=== PATIENT | male | born 1945 | race Caucasian/White ===

== ENCOUNTER 2020-03-29 11:39 | Inpatient (IN) | payer OTHER ==
[~2020-03-29] VITALS: Ht 180.3 cm; Wt 82.0 kg
[2020-03-29 12:28] LABS: Hematocrit 49.1 % (37.0-53.0); Mean Corpuscular HGB 30.4 pg (26.0-34.0); Mean Corpuscular HGB Conc 34.6 g/dL (31.5-36.5); Mean Corpuscular Volume 88 fL (80-100); Mean Platelet Volume 9.5 fL (9.1-12.4); Platelet Count 252 K/mm3 (150-400); RDW Coefficient Variation 12.7 % (11.7-14.2); RDW Standard Deviation 40.7 fL (35.1-46.3); White Blood Cell Count 23.86 K/mm3 (4.00-11.30)
[2020-03-29 12:34] LABS: Alanine Aminotransfer (ALT/SGP 182 U/L (12-78); Albumin, Blood 3.8 g/dL (3.4-5.0); Alk Phos 87 U/L (50-136); Anion Gap 10 mmol/L (6-16); Aspartate Aminotrans (AST/SGOT 120 U/L (12-37); Bilirubin, Total 1.4 mg/dL (0.1-1.0); Blood Urea Nitrogen 11 mg/dL (8-24); Bun/Creatinine Ratio 11.7 (12.0-20.0); CO2, Blood 26 mmol/L (21-32); Calcium, Blood 8.7 mg/dL (8.5-10.1); Chloride, Blood 92 mmol/L (98-108); Creatinine, Blood 0.94 mg/dL (0.60-1.20); Globulin, Blood 3.7 g/dL (2.2-4.0); Glomerular Filtration Rate >60 (60-); Glucose, Blood 103 mg/dL (70-99); Sodium, Blood 128 mmol/L (136-145); Total Protein, Blood 7.5 g/dL (6.4-8.2); Troponin I <0.015 ng/mL (0.000-0.040)
[2020-03-29 13:05] LABS: BAND PERCENT MAN 4 % (0-8); BASOPHILS PERCENT MAN 0 % (0-2); EOSINOPHILS PERCENT MAN 0 % (0-6); LYMPHOCYTES ABSOLUTE MAN 0.47 K/mm3 (0.84-5.20); LYMPHOCYTES PERCENT MAN 2 % (21-46); MONOCYTES ABSOLUTE MAN 0.71 K/mm3 (0.16-1.47); MONOCYTES PERCENT MAN 3 % (4-13); NEUTROPHILS ABSOLUTE MAN 22.66 K/mm3 (1.96-9.15); SEG NEUTROPHILS PERCENT MAN 91 % (41-73); TOTAL CELLS COUNTED 100
[2020-03-29] MEDS ORDERED: LOSA50 PO (13:24)
[2020-03-29] MEDS ORDERED: OMEP20ER PO (13:24)
[2020-03-29] MEDS ORDERED: AMLO5 PO (13:25)
[2020-03-29 13:26] LABS: Source, Urine Clean Catch
[2020-03-29] MEDS ORDERED: METO25ER PO (13:33)
[2020-03-29] MEDS ORDERED: TRIA50 PO (13:33)
[2020-03-29] MEDS ORDERED: VIT1CAPS12 PO (13:34)
[2020-03-29] MEDS ORDERED: THERA-D2000 UNIT PO (13:34)
[2020-03-29] MEDS ORDERED: STIOLTO RESPIMAT4 G1 INH (13:35)
[2020-03-29 13:46] LABS: Appearance, Urine Clear (Clear); Bilirubin, Urine Neg (Neg); Blood, Urine Neg (Neg); Color, Urine Yellow (P-Yellow); Glucose Qualitative, Urine Neg (Neg); Ketones, Urine Neg (Neg); Leukocyte Esterase, Urine Neg (Neg); Nitrite, Urine Neg (Neg); Protein, Urine 2+ (Neg); Specific Gravity, Urine 1.015 (1.003-1.022); Urobilinogen, Urine NORM (Normal)
[2020-03-29 14:21] LABS: Bacteria Few /hpf; Red Blood Cells, Urine Not Seen /hpf (0-2); Squamous Epithelial Cells Not Seen /hpf (Few); White Blood Cells, Urine Not Seen /hpf (0-5)
[2020-03-30] MEDS ORDERED: ALBU90OI INH (00:35)
[2020-03-30] MEDS ORDERED: BENZ100A PO ×2 (00:36→11:23)
[2020-03-30] MEDS ORDERED: Flonase 0.05% N16 GM (00:37)
[2020-03-30] MEDS ORDERED: Dyazide 37.5/251 EA PO (00:39)
[2020-03-30] MEDS ORDERED: MULTI-VITAMIN1 EAC2 PO (00:40)
[2020-03-30] MEDS ORDERED: STIOLTO RESPIMAT4 G1 INH (00:41)
[2020-03-30 04:23] LABS: BASOPHILS ABSOLUTE AUTO 0.01 K/mm3 (0.00-0.23); BASOPHILS PERCENT AUTO 0 % (0-2); EOSINOPHILS ABSOLUTE AUTO 0.01 K/mm3 (0.00-0.68); EOSINOPHILS PERCENT AUTO 0 % (0-6); Hematocrit 44.8 % (37.0-53.0); Hemoglobin 15.4 g/dL (13.5-17.5); IMMATURE GRAN ABSOLUTE AUTO 0.06 K/mm3 (0.00-0.10); IMMATURE GRAN PERCENT AUTO 0 % (0-1); LYMPHOCYTES ABSOLUTE AUTO 0.49 K/mm3 (0.84-5.20); LYMPHOCYTES PERCENT AUTO 3 % (21-46); MONOCYTES ABSOLUTE AUTO 0.19 K/mm3 (0.16-1.47); MONOCYTES PERCENT AUTO 1 % (4-13); Mean Corpuscular HGB 30.3 pg (26.0-34.0); Mean Corpuscular HGB Conc 34.4 g/dL (31.5-36.5); Mean Corpuscular Volume 88 fL (80-100); Mean Platelet Volume 9.1 fL (9.1-12.4); NEUTROPHILS ABSOLUTE AUTO 13.49 K/mm3 (1.96-9.15); NEUTROPHILS PERCENT AUTO 95 % (41-73); Platelet Count 227 K/mm3 (150-400); RDW Coefficient Variation 12.7 % (11.7-14.2); RDW Standard Deviation 40.8 fL (35.1-46.3); Red Blood Cell Count 5.08 M/mm3 (4.30-5.90); White Blood Cell Count 14.25 K/mm3 (4.00-11.30)
[2020-03-30 04:40] LABS: Alanine Aminotransfer (ALT/SGP 121 U/L (12-78); Albumin, Blood 3.2 g/dL (3.4-5.0); Albumin/Globulin Ratio 0.9 (0.8-1.8); Alk Phos 71 U/L (50-136); Anion Gap 9 mmol/L (6-16); Aspartate Aminotrans (AST/SGOT 54 U/L (12-37); Bilirubin, Total 0.7 mg/dL (0.1-1.0); Blood Urea Nitrogen 16 mg/dL (8-24); Bun/Creatinine Ratio 17.7 (12.0-20.0); CO2, Blood 25 mmol/L (21-32); Calcium, Blood 8.5 mg/dL (8.5-10.1); Chloride, Blood 97 mmol/L (98-108); Globulin, Blood 3.4 g/dL (2.2-4.0); Glomerular Filtration Rate >60 (60-); Glucose, Blood 145 mg/dL (70-99); Potassium, Blood 3.6 mmol/L (3.5-5.5); Sodium, Blood 131 mmol/L (136-145); Total Protein, Blood 6.6 g/dL (6.4-8.2)
[2020-03-30 10:40] LABS: Influenza A, PCR NEGATIVE (NEGATIVE); Influenza B, PCR NEGATIVE (NEGATIVE); Resp Syncytial Virus, PCR NEGATIVE (NEGATIVE); SARS-Cov-2 (COVID-19) PCR, MMC NEGATIVE (NEGATIVE)
[2020-03-31 05:03] LABS: BASOPHILS ABSOLUTE AUTO 0.03 K/mm3 (0.00-0.23); BASOPHILS PERCENT AUTO 0 % (0-2); EOSINOPHILS ABSOLUTE AUTO 0.13 K/mm3 (0.00-0.68); EOSINOPHILS PERCENT AUTO 1 % (0-6); Hematocrit 45.7 % (37.0-53.0); Hemoglobin 15.7 g/dL (13.5-17.5); IMMATURE GRAN PERCENT AUTO 1 % (0-1); LYMPHOCYTES ABSOLUTE AUTO 1.35 K/mm3 (0.84-5.20); LYMPHOCYTES PERCENT AUTO 7 % (21-46); MONOCYTES ABSOLUTE AUTO 1.73 K/mm3 (0.16-1.47); MONOCYTES PERCENT AUTO 9 % (4-13); Mean Corpuscular HGB 30.6 pg (26.0-34.0); Mean Corpuscular HGB Conc 34.4 g/dL (31.5-36.5); Mean Corpuscular Volume 89 fL (80-100); Mean Platelet Volume 9.8 fL (9.1-12.4); NEUTROPHILS ABSOLUTE AUTO 16.24 K/mm3 (1.96-9.15); NEUTROPHILS PERCENT AUTO 83 % (41-73); Platelet Count 252 K/mm3 (150-400); RDW Standard Deviation 42.7 fL (35.1-46.3); Red Blood Cell Count 5.13 M/mm3 (4.30-5.90); White Blood Cell Count 19.58 K/mm3 (4.00-11.30)
[2020-03-31 05:23] LABS: Alanine Aminotransfer (ALT/SGP 93 U/L (12-78); Albumin, Blood 3.2 g/dL (3.4-5.0); Alk Phos 65 U/L (50-136); Anion Gap 6 mmol/L (6-16); Aspartate Aminotrans (AST/SGOT 47 U/L (12-37); Bilirubin, Total 0.4 mg/dL (0.1-1.0); Blood Urea Nitrogen 17 mg/dL (8-24); Bun/Creatinine Ratio 20.2 (12.0-20.0); CO2, Blood 28 mmol/L (21-32); Calcium, Blood 8.4 mg/dL (8.5-10.1); Chloride, Blood 99 mmol/L (98-108); Creatinine, Blood 0.84 mg/dL (0.60-1.20); Globulin, Blood 3.2 g/dL (2.2-4.0); Glomerular Filtration Rate >60 (60-); Glucose, Blood 93 mg/dL (70-99); Potassium, Blood 3.8 mmol/L (3.5-5.5); Sodium, Blood 133 mmol/L (136-145); Total Protein, Blood 6.4 g/dL (6.4-8.2)
[2020-03-31] MEDS ORDERED: CEFP200 PO (11:37)
[2020-03-31] MEDS ORDERED: AZIT500 PO (11:37)
[2020-03-31] MEDS ORDERED: GUAI600T33 PO (11:38)
[2020-03-31] MEDS ORDERED: ONDA4ODT MM (11:38)
[2020-03-31] MEDS ORDERED: PRED20 PO (11:40)
[2020-03-31] MEDS ORDERED: VISBIOME 112.51 EACH PO (11:41)
[2020-03-31] MEDS ORDERED: BENZ100A (11:48)
== END 2020-03-31 15:28 | disposition home or self-care (01) | DRG 871 ==
LOC: ER 11:39 → MEDS 14:54
PROVIDERS: Emergency Medicine; Family Medicine; Nurse Practitioner Acute Care; ADMIT Internal Medicine
DX: A41.9 Sepsis, unspecified organism (principal); J96.21 Acute and chronic respiratory failure with hypoxia; J18.9 Pneumonia, unspecified organism; J44.1 Chronic obstructive pulmonary disease with (acute) exacerbation; I27.0 Primary pulmonary hypertension; E87.1 Hypo-osmolality and hyponatremia; J44.0 Chronic obstructive pulmonary disease with (acute) lower respiratory infection; I48.0 Paroxysmal atrial fibrillation; K21.9 Gastro-esophageal reflux disease without esophagitis; Z85.46 Personal history of malignant neoplasm of prostate; Z87.891 Personal history of nicotine dependence; I10 Essential (primary) hypertension; R74.01 Elevation of levels of liver transaminase levels
CPT/HCPCS: 0241U; 36415; 71045; 71046; 71260; 80053; 81001; 83605; 83690; 83880; 84145; 84484; 85025; 87040; 87077; 87186; 93005; 93010; 94640; 94760; 96365; 96366; 96367; 96375; 99285-25; A9270; J0456; J0696; J1650; J2920; J2930; J7030; J7050; J7512; Q9967

== ENCOUNTER 2022-04-08 13:03 | Inpatient (IN) | payer OTHER ==
[~2022-04-08] VITALS: Ht 177.8 cm; Wt 79.6 kg
[~2022-04-08 13:03] MED LIST: ALBU90OI INH; AMLO5 PO; AZIT500 PO; BENZ100A; BENZ100A PO; CEFP200 PO; Dyazide 37.5/251 EA PO; Flonase 0.05% N16 GM; GUAI600T33 PO; LOSA50 PO; METO25ER PO; MULTI-VITAMIN1 EAC2 PO; OMEP20ER PO; ONDA4ODT MM; PRED20 PO; STIOLTO RESPIMAT4 G1 INH; THERA-D2000 UNIT PO; TRIA50 PO; VISBIOME 112.51 EACH PO; VIT1CAPS12 PO
[2022-04-08 13:25] LABS: Mean Corpuscular HGB 30.9 pg (26.0-34.0); Mean Corpuscular HGB Conc 37.2 g/dL (31.5-36.5); Mean Corpuscular Volume 83 fL (80-100); Mean Platelet Volume 8.3 fL (9.1-12.4); Platelet Count 273 K/mm3 (150-400); RDW Coefficient Variation 12.1 % (11.7-14.2); RDW Standard Deviation 36.9 fL (35.1-46.3); Red Blood Cell Count 5.18 M/mm3 (4.30-5.90); White Blood Cell Count 12.44 K/mm3 (4.00-11.30)
[2022-04-08 13:50] LABS: Albumin, Blood 3.5 g/dL (3.4-5.0); Albumin/Globulin Ratio 1.2 (0.8-1.8); Bilirubin, Total 0.9 mg/dL (0.1-1.0); Bun/Creatinine Ratio 15.5 (12.0-20.0); Calcium, Blood 8.1 mg/dL (8.5-10.1); Creatinine, Blood 0.84 mg/dL (0.60-1.20); Potassium, Blood 2.8 mmol/L (3.5-5.5); Total Protein, Blood 6.5 g/dL (6.4-8.2)
[2022-04-08 13:54] LABS: BASOPHILS PERCENT MAN 0 % (0-2); EOSINOPHILS PERCENT MAN 0 % (0-6); LYMPHOCYTES ABSOLUTE MAN 0.62 K/mm3 (0.84-5.20); LYMPHOCYTES PERCENT MAN 5 % (21-46); MONOCYTES ABSOLUTE MAN 0.62 K/mm3 (0.16-1.47); MONOCYTES PERCENT MAN 5 % (4-13); MYELOCYTE ABSOLUTE MAN 0.12 K/mm3 (0.00-0.00); MYELOCYTE PERCENT MAN 1 % (0-0); NEUTROPHILS ABSOLUTE MAN 11.07 K/mm3 (1.96-9.15); SEG NEUTROPHILS PERCENT MAN 89 % (41-73); TOTAL CELLS COUNTED 100
[2022-04-08] MEDS ORDERED: Ventolin/Proventil INH (17:22)
[2022-04-08] MEDS ORDERED: CHLO25B PO (17:23)
[2022-04-08] MEDS ORDERED: FAMO20 PO (17:24)
[2022-04-08] MEDS ORDERED: Iprat-Albut 0.5-3(2. INH (17:26)
[2022-04-08] MEDS ORDERED: LOSARTAN POTAS100 M1 PO (17:27)
[2022-04-08] MEDS ORDERED: Lopressor 25 mg25 MG PO (17:28)
[2022-04-08] MEDS ORDERED: Deltasone 10 mg10 MG PO (17:29)
[2022-04-08] MEDS ORDERED: [UNRECOGNIZED DRUG - OTHER] PO (17:31)
[2022-04-08 18:35] LABS: Bun/Creatinine Ratio 13.7 (12.0-20.0); Calcium, Blood 8.6 mg/dL (8.5-10.1); Creatinine, Blood 0.8 mg/dL (0.60-1.20); Potassium, Blood 3.6 mmol/L (3.5-5.5)
[2022-04-08 19:14] LABS: Base Excess Venous 5.2 mmol/L; Bicarbonate Venous 28.1 mmol/L (24.0-30.0); PCO2 Venous 47.6 mmHg (38-42); pH Blood Venous 7.41 (7.34-7.37)
[2022-04-09 00:06] LABS: Bun/Creatinine Ratio 14.1 (12.0-20.0); Calcium, Blood 8.2 mg/dL (8.5-10.1); Creatinine, Blood 0.85 mg/dL (0.60-1.20); Potassium, Blood 2.9 mmol/L (3.5-5.5)
--- NOTE | 2022-04-09 01:16 | NUR ---
UPDATE NA 117 ON ADMIT, CURRENTLY 124. K OF 2.9. PER TALENT SOURCING SPECIALIST RESIDENT, OK TO D/C IV FLUIDS, NEW ORDER FOR 60 MEQ KCL PO.
[2022-04-09 04:40] LABS: BASOPHILS ABSOLUTE AUTO 0.03 K/mm3 (0.00-0.23); BASOPHILS PERCENT AUTO 0 % (0-2); EOSINOPHILS ABSOLUTE AUTO 0.09 K/mm3 (0.00-0.68); EOSINOPHILS PERCENT AUTO 1 % (0-6); Hematocrit 41.6 % (37.0-53.0); Hemoglobin 15.2 g/dL (13.5-17.5); IMMATURE GRAN ABSOLUTE AUTO 0.07 K/mm3 (0.00-0.10); IMMATURE GRAN PERCENT AUTO 1 % (0-1); LYMPHOCYTES ABSOLUTE AUTO 1.62 K/mm3 (0.84-5.20); LYMPHOCYTES PERCENT AUTO 17 % (21-46); MONOCYTES ABSOLUTE AUTO 1.28 K/mm3 (0.16-1.47); MONOCYTES PERCENT AUTO 13 % (4-13); Mean Corpuscular HGB 31.1 pg (26.0-34.0); Mean Corpuscular HGB Conc 36.5 g/dL (31.5-36.5); Mean Corpuscular Volume 85 fL (80-100); NEUTROPHILS ABSOLUTE AUTO 6.73 K/mm3 (1.96-9.15); NEUTROPHILS PERCENT AUTO 69 % (41-73); Platelet Count 283 K/mm3 (150-400); RDW Coefficient Variation 12.2 % (11.7-14.2); RDW Standard Deviation 37.9 fL (35.1-46.3); Red Blood Cell Count 4.89 M/mm3 (4.30-5.90); White Blood Cell Count 9.82 K/mm3 (4.00-11.30)
[2022-04-09 04:58] LABS: Calcium, Blood 8.3 mg/dL (8.5-10.1); Creatinine, Blood 0.92 mg/dL (0.60-1.20); Potassium, Blood 3.3 mmol/L (3.5-5.5)
--- NOTE | 2022-04-09 05:50 | NUR ---
SHIFT SUMMARY A/OX4, PLEASANT AND COOPERATIVE WITH CARE. 1-2P ASSIST WITH FWW AND GB. TELE SR IN THE 70S. BP STABLE; DENIES CHEST PAIN/PRESSURE. SPO2 >92% ON BASELINE 2L VIA NC. IV FLUIDS D/C'D, PLEASE SEE PREVIOUS NOTE REGARDING NA AND K. VSS, NO ACUTE CHANGES AT THIS TIME. BED IN LOWEST POSITION WITH CALL LIGHT IN REACH. WILL CONTINUE TO MONITOR AND REPORT TO ONCOMING RN.
[2022-04-09 07:22] LABS: Magnesium, Blood 1.9 mg/dL (1.6-2.4)
[2022-04-09 08:44] LABS: Bun/Creatinine Ratio 12.8 (12.0-20.0); Calcium, Blood 8.5 mg/dL (8.5-10.1); Creatinine, Blood 0.86 mg/dL (0.60-1.20); Potassium, Blood 2.9 mmol/L (3.5-5.5)
[2022-04-09 12:13] LABS: Bun/Creatinine Ratio 15.9 (12.0-20.0); Calcium, Blood 8.7 mg/dL (8.5-10.1); Creatinine, Blood 0.82 mg/dL (0.60-1.20); Potassium, Blood 3.2 mmol/L (3.5-5.5)
[2022-04-09 16:06] LABS: Bun/Creatinine Ratio 17.6 (12.0-20.0); Calcium, Blood 8.4 mg/dL (8.5-10.1); Creatinine, Blood 0.91 mg/dL (0.60-1.20); Potassium, Blood 3.9 mmol/L (3.5-5.5)
--- NOTE | 2022-04-09 16:24 | NUR ---
SHIFT SUMMARY PT HAS BEEN PLEASANT AND COOPERATIVE WITH ALL CARE. PT HAS CALLED APPROPRIATELY FOR ASSISTANCE. PT WAS TRIALED ON AN ANXIOLYTIC PER PROVIDER WHICH CAUSED MARKED DROWSINESS FOR SEVERAL HOURS. PT DID NOT EXHIBIT ANY FURTHER SIGNS OF SIGNIFICANT ANXIETY. ALL VITAL SIGNS HAVE REMAINED STABLE, NO CAHNGES IN PATIENT CONDITION.
[2022-04-09 21:34] LABS: Bun/Creatinine Ratio 15.6 (12.0-20.0); Calcium, Blood 8.4 mg/dL (8.5-10.1); Creatinine, Blood 0.9 mg/dL (0.60-1.20)
--- NOTE | 2022-04-10 04:11 | NUR ---
SHIFT SUMMARY PATIENT HAD NO ACUTE CHANGES. AXOX 4 AND ONE ASSIST W/FWW TO BSC. PIV REMAINS INTACT. ON 2L O2 NC BASELINE. DENIES PAIN, SOB, AND N/V. VSS/AFEBRILE. HOSPITALIST DR ZAMORANO CALLED AND CHANGED NS @ 75 mL/HR TO 50 mL/HR. COOPERATIVE WITH CARE. CALL LIGHT IN REACH. BED IN LOWEST POSITION. WILL CONTINUE TO MONITOR UNTIL DAY SHIFT NURSE ASSUMES CARE.
[2022-04-10 06:40] LABS: Albumin, Blood 3.1 g/dL (3.4-5.0); Anion Gap 7 mmol/L (6-16); Blood Urea Nitrogen 11 mg/dL (8-24); Bun/Creatinine Ratio 13.8 (12.0-20.0); CO2, Blood 31 mmol/L (21-32); Calcium, Blood 8.3 mg/dL (8.5-10.1); Chloride, Blood 94 mmol/L (98-108); Glomerular Filtration Rate 92 (60-); Glucose, Blood 85 mg/dL (70-99); Phosphorus, Blood 2.3 mg/dL (2.5-4.9); Potassium, Blood 3.3 mmol/L (3.5-5.5); Sodium, Blood 132 mmol/L (136-145)
[2022-04-10 10:36] LABS: Bun/Creatinine Ratio 12.5 (12.0-20.0); Calcium, Blood 8.4 mg/dL (8.5-10.1); Creatinine, Blood 0.88 mg/dL (0.60-1.20)
[2022-04-10 16:23] LABS: Bun/Creatinine Ratio 14.4 (12.0-20.0); Calcium, Blood 8.7 mg/dL (8.5-10.1); Creatinine, Blood 0.83 mg/dL (0.60-1.20); Magnesium, Blood 1.9 mg/dL (1.6-2.4); Potassium, Blood 4.2 mmol/L (3.5-5.5)
--- NOTE | 2022-04-10 17:58 | NUR ---
SHIFT SUMMARY PT UP TO BATHROOM WITH 1 PERSON ASSIST USING FWW THIS MORNING WITH BM. SITS ON SIDE OF BED FOR MEALS. AMBULATED IN HALLWAY THIS AFTERNOON WITH FWW AND 1 PERSON ASSIST. MILD SOB WITH ACTIVITY. SODIUM LEVELS REMAIN LOWER THAN NORMAL WITH NS NOW RUNNING AT 100/HR. AT BEDSIDE. PT NOTIFIED EARLIER TODAY OF LIMITING WATER INTAKE DUE TO LOW SODIUM DUE TO HIM STATING HE DRINKS A COUPLE LITERS OF WATER PER DAY. DISCUSSED WITH PT ABOUT NEW NO WATER RESTRICTION AND WAS AGREEABLE TO ANEL.
[2022-04-10 23:43] LABS: Bun/Creatinine Ratio 13.7 (12.0-20.0); Calcium, Blood 8.3 mg/dL (8.5-10.1); Creatinine, Blood 0.95 mg/dL (0.60-1.20); Potassium, Blood 3.9 mmol/L (3.5-5.5)
--- NOTE | 2022-04-11 05:05 | NUR ---
SHIFT SUMMARY NO OVERNIGHT EVENTS. IV FLUIDS CONTIUE. NA+ STILL LOW AT 130. PT RESTRICTED TO NO WATER, ENCOURAGING GATORADE. PT ON BASELINE 2LO2 NC, REPORTS MILD SOB. PT STATES HE IS HAVING SOME BLOODY SPUTUM WITH HIS COUGH. PER PT, STATES HE HAS HAD BLOODY SPUTUM FOR 8 MONTHS AND OP PULMONALOGY MD IS AWARE, WILL ENDORSE TO DAY SHIFT RN. PT USING URINAL, REMAINED IN BED, ABLE TO TURN SELF. PT ORIENTED X4, ABLE TO MAKE NEEDS KNOWN, CALL LIGHT IN REACH.
[2022-04-11 05:07] LABS: Bun/Creatinine Ratio 11.6 (12.0-20.0); Calcium, Blood 8.4 mg/dL (8.5-10.1); Creatinine, Blood 0.95 mg/dL (0.60-1.20)
[2022-04-11] MEDS ORDERED: IPRAT-ALBUT 0.5-3 ML INH (11:02)
[2022-04-11] MEDS ORDERED: Preservision A1 EACH PO (11:03)
[2022-04-11] MEDS ORDERED: PROAIR DIGIHAL90 MCG INH (11:04)
[2022-04-11] MEDS ORDERED: DOCU100 PO (11:05)
--- NOTE | 2022-04-11 13:04 | NUR ---
DISCHARGE- PT DISCHARED TO HOME ON 2L NC. DISCHARGE EDUCATION PROVIDED.
== END 2022-04-11 11:55 | disposition home or self-care (01) | DRG 640 ==
LOC: ER 13:03 → MEDS 17:19 → PCU 17:19 → ER 17:19 → ICUW 17:19 → PCU 20:17 → MEDS 04-09 18:16
PROVIDERS: Emergency Medicine; Family Medicine; Family Medicine Adult Medicine; Student in an Organized Health Care Education/Training Program; ADMIT Hospitalist
DX: E87.1 Hypo-osmolality and hyponatremia (principal); G93.41 Metabolic encephalopathy; R65.10 Systemic inflammatory response syndrome (SIRS) of non-infectious origin without acute organ dysfunction; J44.9 Chronic obstructive pulmonary disease, unspecified; I48.91 Unspecified atrial fibrillation; T50.2X5A Adverse effect of carbonic-anhydrase inhibitors, benzothiadiazides and other diuretics, initial encounter; K21.9 Gastro-esophageal reflux disease without esophagitis; E78.5 Hyperlipidemia, unspecified; E87.6 Hypokalemia; R91.1 Solitary pulmonary nodule; E86.1 Hypovolemia; I10 Essential (primary) hypertension; R63.1 Polydipsia; E83.51 Hypocalcemia; E86.0 Dehydration; E03.9 Hypothyroidism, unspecified; J84.10 Pulmonary fibrosis, unspecified; Z85.118 Personal history of other malignant neoplasm of bronchus and lung; Z88.8 Allergy status to other drugs, medicaments and biological substances; Z79.899 Other long term (current) drug therapy; Z79.51 Long term (current) use of inhaled steroids; Z79.52 Long term (current) use of systemic steroids; Z79.2 Long term (current) use of antibiotics; Z87.891 Personal history of nicotine dependence; Z92.3 Personal history of irradiation; Z85.46 Personal history of malignant neoplasm of prostate; Z86.73 Personal history of transient ischemic attack (TIA), and cerebral infarction without residual deficits; Z98.890 Other specified postprocedural states
CPT/HCPCS: 36415; 71260; 80048; 80053; 80069; 82570; 82803; 83735; 83930; 83935; 84300; 84443; 85025; 93005; 93010; 94640; 94664; 94760; 94762; 96365-59; 99285-25; A9270; J1650; J3480; J7030; J7050; J7512; Q9967

== ENCOUNTER 2022-04-22 11:16 | Inpatient (IN) | payer OTHER ==
[~2022-04-22] VITALS: Ht 180.3 cm; Wt 78.0 kg
[~2022-04-22 11:16] MED LIST changes: +CHLO25B PO; +DOCU100 PO; +Deltasone 10 mg10 MG PO; +FAMO20 PO; +IPRAT-ALBUT 0.5-3 ML INH; +Iprat-Albut 0.5-3(2. INH; +LOSARTAN POTAS100 M1 PO; +Lopressor 25 mg25 MG PO; +PROAIR DIGIHAL90 MCG INH; +Preservision A1 EACH PO; +Ventolin/Proventil INH; +[UNRECOGNIZED DRUG - OTHER] PO
[2022-04-22 12:16] LABS: BASOPHILS ABSOLUTE AUTO 0.05 K/mm3 (0.00-0.23); BASOPHILS PERCENT AUTO 0 % (0-2); Hematocrit 40.1 % (37.0-53.0); Hemoglobin 14.4 g/dL (13.5-17.5); LYMPHOCYTES ABSOLUTE AUTO 0.61 K/mm3 (0.84-5.20); LYMPHOCYTES PERCENT AUTO 2 % (21-46); MONOCYTES ABSOLUTE AUTO 2.34 K/mm3 (0.16-1.47); MONOCYTES PERCENT AUTO 8 % (4-13); Mean Corpuscular HGB 31.1 pg (26.0-34.0); Mean Corpuscular HGB Conc 35.9 g/dL (31.5-36.5); Mean Corpuscular Volume 87 fL (80-100); Mean Platelet Volume 9.5 fL (9.1-12.4); Platelet Count 283 K/mm3 (150-400); RDW Coefficient Variation 12.9 % (11.7-14.2); RDW Standard Deviation 40.6 fL (35.1-46.3); Red Blood Cell Count 4.63 M/mm3 (4.30-5.90); White Blood Cell Count 30.21 K/mm3 (4.00-11.30)
[2022-04-22 12:19] LABS: Bun/Creatinine Ratio 17.5 (12.0-20.0); Calcium, Blood 8.5 mg/dL (8.5-10.1); Creatinine, Blood 0.92 mg/dL (0.60-1.20); Magnesium, Blood 1.8 mg/dL (1.6-2.4)
[2022-04-22 12:27] LABS: EOSINOPHILS ABSOLUTE AUTO 0.15 K/mm3 (0.00-0.68); EOSINOPHILS PERCENT AUTO 1 % (0-6); IMMATURE GRAN ABSOLUTE AUTO 0.49 K/mm3 (0.00-0.10); IMMATURE GRAN PERCENT AUTO 2 % (0-1); NEUTROPHILS ABSOLUTE AUTO 26.57 K/mm3 (1.96-9.15); NEUTROPHILS PERCENT AUTO 88 % (41-73)
[2022-04-22 15:47] LABS: Anti-Xa UFH, PHA Monitoring <0.10 IU/mL; International Normalized Ratio 1.14; Prothrombin Time Results 11.9 Sec (9.7-11.5)
[2022-04-22] MEDS ORDERED: AMLO5 PO (16:31)
[2022-04-22] MEDS ORDERED: LOSA50 PO (16:31)
[2022-04-22] MEDS ORDERED: METO25ER PO (16:32)
[2022-04-22] MEDS ORDERED: OMEPRAZOLE20 M1 (16:32)
[2022-04-22] MEDS ORDERED: THERA-D2000 UNIT PO (16:33)
[2022-04-22] MEDS ORDERED: PRESERVISION A1 EAC1 (16:33)
[2022-04-22] MEDS ORDERED: ALBU2.5V5 INH (16:33)
[2022-04-22] MEDS ORDERED: STIOLTO RESPIMAT4 G1 IH (16:33)
[2022-04-22] MEDS ORDERED: PRED5 (16:34)
--- NOTE | 2022-04-22 21:00 | NUR ---
ADMISSION REPORT RECIEVED FROM ER NURSE. PATIENT ARRIVES TO PCU 17. CARDIZEM GTT INFUSING AT 10. PATIENT ALERT AND ORIENTED x4. WEARING BASELINE 3L O2, SATS LOW 90s. AUDIBLE WHEEZES AT TIMES, LUNGS HAVE FINE CRACKLES IN BASES. DENIES CHEST PAIN OR PRESSURE. PATIENT REQUESTING TO USE URINAL INDEPDENTLY. INFORMED PATIENT OF FREE WATER FLUID RESTRICTION, PATIENT AWARE. PATIENT ORIENTED TO ROOM AND CALL LIGHT SYSTEM. BED IN LOW POSITION, HAS CALL LIGHT AND IS WATCHING TV.
[2022-04-23 04:06] LABS: BASOPHILS ABSOLUTE AUTO 0.04 K/mm3 (0.00-0.23); BASOPHILS PERCENT AUTO 0 % (0-2); EOSINOPHILS ABSOLUTE AUTO 0.06 K/mm3 (0.00-0.68); EOSINOPHILS PERCENT AUTO 0 % (0-6); Hematocrit 37.8 % (37.0-53.0); Hemoglobin 13.4 g/dL (13.5-17.5); IMMATURE GRAN ABSOLUTE AUTO 0.14 K/mm3 (0.00-0.10); IMMATURE GRAN PERCENT AUTO 1 % (0-1); LYMPHOCYTES ABSOLUTE AUTO 0.68 K/mm3 (0.84-5.20); LYMPHOCYTES PERCENT AUTO 4 % (21-46); MONOCYTES PERCENT AUTO 8 % (4-13); Mean Corpuscular HGB 31.2 pg (26.0-34.0); Mean Corpuscular HGB Conc 35.4 g/dL (31.5-36.5); Mean Corpuscular Volume 88 fL (80-100); Mean Platelet Volume 9.5 fL (9.1-12.4); NEUTROPHILS ABSOLUTE AUTO 15.84 K/mm3 (1.96-9.15); NEUTROPHILS PERCENT AUTO 87 % (41-73); Platelet Count 251 K/mm3 (150-400); RDW Coefficient Variation 12.8 % (11.7-14.2); RDW Standard Deviation 41.5 fL (35.1-46.3); Red Blood Cell Count 4.29 M/mm3 (4.30-5.90); White Blood Cell Count 18.26 K/mm3 (4.00-11.30)
[2022-04-23 04:35] LABS: Bun/Creatinine Ratio 14.6 (12.0-20.0); Creatinine, Blood 0.96 mg/dL (0.60-1.20); Potassium, Blood 3.3 mmol/L (3.5-5.5)
--- NOTE | 2022-04-23 06:52 | NUR ---
SHIFT SUMMARY PATIENT ALERT AND ORIENTED x4. BP STABLE, HR AFIB 110-130s. CARDIZEM GTT INFUSING. SEE FLOWSHEET FOR TITRATIONS. CARDIZEM IN STANDBY FOR ABOUT 2 HOURS BUT PATIENT WENT INTO AFIB RVR 170 AND CARDIZEM WAS STARTED AGAIN. PATIENT DENIED ANY SYMPTOMS WITH EPISODE. PATIENT ON 3-5L NC DURING THE NIGHT PATIENT DESATs WITH MOUTH BREATHING. PATIENT USING URINAL INDEPENDENTLY WITH ADEQUATE OUTPUT THIS SHIFT. FREE WATER RESTRICTION. NO OTHER CHANGES THIS SHIFT, WILL REPORT TO DAY SHIFT RN.
--- NOTE | 2022-04-23 07:45 | NUR ---
AM ASSESSMENT: Pt resting in bed. HR currently 70's and NSR, Pt converted from afib around 0730. Cardizem gtt turned off. BP low with SBP in the 80's, MAP >60. Pt denies dizziness, lightheadedness. States that he feels much better than when he came in. LS diminished with some fine crackles in bases. O2 currently at 5L per NC. Pt does desaturate at times. Will titrate o2 to keep BIox >90%. BT positive. Pules palp. Will continue to monitor. Call light in reach.
--- NOTE | 2022-04-23 08:00 | NUR ---
Transfer assessment: Pt arrived to room PCU 20 from medical floor. Pt lethargic but wakes to verbal stimulus. Oriented to self, knows he is at hospital but not sure where at this time, asking for his . Pt arrived on 15L NRB. BIox showed 100%. Dr. Salinas and RT in room. Decreased O2 down to 12L per High flow NC. Will continue to titrated for biox > 92%. LS diminished. HR reg. VSS. Pt grunts and grimaces with any movement. Will medicate and reposition per orders. Pt repositioned to R side. Buttock very red with stage one pressure ulcer noted. Mepalex placed and will continue to reposition Q2. Dotson cath to be placed per orders. Call light in reach. Bed alarm on. Will continue to mnoitor.
--- NOTE | 2022-04-23 12:03 | NUR ---
update: Pt much more alert. Was able to be titrated down to 8L per high flow NC. Currently states that his pain is a 2/10 in back, tolerable. Pt oriented to self, family and place. Following directions. Able to sit up and eat finger food lunch. at bedside. Dotson cath draining clear, yellow urine. BP and HR stable. Call light in reach. Will continue to monitor.
--- NOTE | 2022-04-23 18:10 | NUR ---
SHIFT SUMMARY: Pt has done well this shift. Converted to NSR this am and has remained in NSR with PAC's throughout shift. Rate has increased from the 70's to the low 100's. BP had improved throughout shift. Pt states that he is feeling pretty good and hopes to discharge tomorrow. Oxygen has had to remain at 5L per NC to maintain oxygen >90%. PT/OT worked with patient. Tolerated well. Will report to night RN. Stable at this time.
--- NOTE | 2022-04-23 23:59 | NUR ---
ASSUMPTION OF CARE ASSUMED CARE OF PT AT 1900. PT A&Ox4, CALLS AND COMMUNICATES NEEDS APPROPRIATELY. VSS, SpO2> 92% ON 5L VIA NC, PT DENIES CP/PRESSURE. BP STABLE, SINUS 90-100's WITH PAC's, DENIES CP/PRESSURE. 2300 BP SOFT WITH SBP 90's, PT ASYMPTOMATIC. PT USES URINAL IND AT BEDSIDE. PT ON CONTINUOUS CARDIAC AND SpO2 MONITORING.
--- NOTE | 2022-04-24 05:25 | NUR ---
SHIFT SUMMARY SEE PREVIOUS NOTE, NO ACUTE CHANGES. VSS, BP STABLE, SINUS WITH PAC's 80-100's, DENIES CP/PRESSURE. SpO2> 92% 5L VIA NC, DENIES SOB. NO OTHER EVENTS, WILL REPORT TO ONCOMING RN.
[2022-04-24 10:13] LABS: BASOPHILS ABSOLUTE AUTO 0.04 K/mm3 (0.00-0.23); BASOPHILS PERCENT AUTO 0 % (0-2); EOSINOPHILS ABSOLUTE AUTO 0.15 K/mm3 (0.00-0.68); EOSINOPHILS PERCENT AUTO 1 % (0-6); Hemoglobin 14.3 g/dL (13.5-17.5); IMMATURE GRAN ABSOLUTE AUTO 0.05 K/mm3 (0.00-0.10); IMMATURE GRAN PERCENT AUTO 0 % (0-1); LYMPHOCYTES ABSOLUTE AUTO 0.64 K/mm3 (0.84-5.20); LYMPHOCYTES PERCENT AUTO 5 % (21-46); MONOCYTES ABSOLUTE AUTO 1.16 K/mm3 (0.16-1.47); MONOCYTES PERCENT AUTO 9 % (4-13); Mean Corpuscular HGB 30.8 pg (26.0-34.0); Mean Corpuscular HGB Conc 34.9 g/dL (31.5-36.5); Mean Corpuscular Volume 88 fL (80-100); Mean Platelet Volume 8.8 fL (9.1-12.4); NEUTROPHILS ABSOLUTE AUTO 11.16 K/mm3 (1.96-9.15); NEUTROPHILS PERCENT AUTO 85 % (41-73); Platelet Count 343 K/mm3 (150-400); RDW Coefficient Variation 12.8 % (11.7-14.2); RDW Standard Deviation 41.8 fL (35.1-46.3); Red Blood Cell Count 4.64 M/mm3 (4.30-5.90)
[2022-04-24 10:31] LABS: Bun/Creatinine Ratio 16.6 (12.0-20.0); Calcium, Blood 8.3 mg/dL (8.5-10.1); Creatinine, Blood 0.84 mg/dL (0.60-1.20); Potassium, Blood 3.3 mmol/L (3.5-5.5)
--- NOTE | 2022-04-24 18:39 | NUR ---
PT SUMMARY: PT CONVERTED FROM SR TO AFIB THIS AM HRR WENT UP TO 170'S WHILE DOIND PHYSICAL THERAPY METOPROLOL PUSH 5MG IV WAS GIVEN THEN PT CONVERTED BACK TO SR, SBP 100-130'S, PT WAS ALSO GIVEN 500ML BOLUS, PT STAYED SR UNTIL THIS END OF SHIFT PT CONVERTED BACK TO AFIB WENT UP TO 180'S PT WAS ON THE PHONE WITH THE THEN SUSTAINED AT 130-150' S, NIGHT RESIDENT CALLED AWAITING FOR CALL BACK, METOPROLOL PO SCHEDULED GIVEN EARLY FOR 2099 AT THIS TIME HRR STILL RANGING 140-160'S. SATS KEPT ABOVE 90% ON 4L, AFEBRILE. PT DENIES ANY KIND OF PAIN FOR THE SHIFT, PT A LITTLE ANXIOUS ABOUT GOING HOME, ADDRESSED SOME QUESTIONS. CAME IN TO VISIT WAS ABLE TO SPEAK WITH THE PROVIDER WELL AND DISCUSSED PLANS. PLAN TO DC PT IN AM ONLY IF STABLE GIVEN THAT HRR IS BACK AND FORTH SR/AFIB. WILL REPORT TO ONCOMING SHIFT
--- NOTE | 2022-04-24 22:09 | NUR ---
ASSUMPTION OF CARE ASSUMED CARE OF PT AT 1900: UPON ASSUMPTION OF CARE, PT IN AFIB 170's. PT ASYMPTOMATIC, BP STABLE. NOTIFIED PHYSICIAN, ORDERS PLACE. EKG DONE AND 5mg LOPRESSOR IV PUSH ADMINISTERED AT APPROXIMATELY 1914. AFTER LOPRESSOR, HR SUSTAINING AFIB 120-140's, BP STABLE, PT ASYMPTOMATIC. APPROXIMATELY 1999: ADMINISTERED SCHEDULED PO 50mg COZAAR, HR SUSTAINING AFIB 120-130's, BP STABLE, PT ASYMPTOMATIC. APPROXIMATELY 2049: HR SUSTAINING AFIB 170's. BP STABLE, PT ASYMPTOMATIC. 2099: STARTED CARDIZEM gtt AT 5mg/hr. 2119: PT CONVERTED TO SR WITH PAC's 80-90's. BP STABLE, PT ASYMPTOMATIC. CARDIZEM gtt PUT IN STANDBY.
[2022-04-25 03:36] LABS: BASOPHILS ABSOLUTE AUTO 0.05 K/mm3 (0.00-0.23); BASOPHILS PERCENT AUTO 0 % (0-2); EOSINOPHILS ABSOLUTE AUTO 0.21 K/mm3 (0.00-0.68); EOSINOPHILS PERCENT AUTO 2 % (0-6); Hematocrit 39.9 % (37.0-53.0); Hemoglobin 13.6 g/dL (13.5-17.5); IMMATURE GRAN ABSOLUTE AUTO 0.06 K/mm3 (0.00-0.10); IMMATURE GRAN PERCENT AUTO 1 % (0-1); LYMPHOCYTES ABSOLUTE AUTO 1.07 K/mm3 (0.84-5.20); LYMPHOCYTES PERCENT AUTO 9 % (21-46); MONOCYTES ABSOLUTE AUTO 1.08 K/mm3 (0.16-1.47); MONOCYTES PERCENT AUTO 9 % (4-13); Mean Corpuscular HGB 30.6 pg (26.0-34.0); Mean Corpuscular HGB Conc 34.1 g/dL (31.5-36.5); Mean Corpuscular Volume 90 fL (80-100); Mean Platelet Volume 8.7 fL (9.1-12.4); NEUTROPHILS ABSOLUTE AUTO 10.14 K/mm3 (1.96-9.15); NEUTROPHILS PERCENT AUTO 80 % (41-73); Platelet Count 352 K/mm3 (150-400); RDW Coefficient Variation 12.8 % (11.7-14.2); RDW Standard Deviation 42.5 fL (35.1-46.3); Red Blood Cell Count 4.44 M/mm3 (4.30-5.90); White Blood Cell Count 12.61 K/mm3 (4.00-11.30)
[2022-04-25 04:08] LABS: Bun/Creatinine Ratio 15.7 (12.0-20.0); Calcium, Blood 8.7 mg/dL (8.5-10.1); Creatinine, Blood 0.89 mg/dL (0.60-1.20); Potassium, Blood 3.9 mmol/L (3.5-5.5)
--- NOTE | 2022-04-25 05:11 | NUR ---
SHIFT SUMMARY SEE PREVIOUS NOTE. PT A&Ox4, CALLS AND COMMUNICATES NEEDS APPROPRIATELY. VSS, SpO2> 92% ON 3L VIA NC, PT DENIES CP/PRESSURE. BP STABLE, DENIES CP/PRESSURE. PT HAS REMAINED IN [facility] PAC's 80's SINCE CONVERTING AT 2119. PT USES URINAL IND AT BEDSIDE. NO OTHER EVENTS, WILL REPORT TO ONCOMING RN.
--- NOTE | 2022-04-25 15:04 | NUR ---
Reviewed the discharge instructions with the patient and with his at the bedside. Questions were answered. Pt was encouraged to follow the recommendations of his industrial specialist. He told me that the doctor had suggested a stress test, but he declined because he was afraid of having a heart attack. We discussed a little more what is involved in having a stress test and he seemed open to talking about it again with his industrial specialist at his scheduled follow up appointment. IV was removed, telemetry removed and pt was taken out in wheelchair by RAFFAELE Abraham to the private vehicle driven by the pt's .
== END 2022-04-25 15:00 | disposition home or self-care (01) | DRG 291 ==
LOC: ER 11:16 → PCU 11:17
PROVIDERS: Pharmacist; Student in an Organized Health Care Education/Training Program; ADMIT Family Medicine
DX: I11.0 Hypertensive heart disease with heart failure (principal); I50.31 Acute diastolic (congestive) heart failure; E87.1 Hypo-osmolality and hyponatremia; R04.2 Hemoptysis; I48.0 Paroxysmal atrial fibrillation; D72.829 Elevated white blood cell count, unspecified; J44.9 Chronic obstructive pulmonary disease, unspecified; K21.9 Gastro-esophageal reflux disease without esophagitis; E87.6 Hypokalemia; Z99.81 Dependence on supplemental oxygen; Z85.118 Personal history of other malignant neoplasm of bronchus and lung; Z88.8 Allergy status to other drugs, medicaments and biological substances; Z79.899 Other long term (current) drug therapy; Z79.51 Long term (current) use of inhaled steroids; Z79.52 Long term (current) use of systemic steroids; Z98.52 Vasectomy status; Z98.890 Other specified postprocedural states; Z87.891 Personal history of nicotine dependence; Z92.3 Personal history of irradiation
CPT/HCPCS: 36415; 71045; 71260; 80048; 83735; 83880; 83930; 83935; 84145; 84300; 84443; 84484; 85025; 85379; 85520; 85610; 85730; 93005; 93010; 93306; 94640; 94664; 94760; 94762; 96365-59; 96366; 96368; 96375; 96375-59; 96376; 96376-59; 97110; 97162; 97166; 97530; 97535; 99285-25; A9270; G0378; J0153; J1644; J1940; J7030; J7040; J7512; Q9967

== ENCOUNTER 2022-12-24 13:52 | Day surgery (SDC) | payer OTHER ==
[~2022-12-24] VITALS: Ht 180.3 cm; Wt 83.3 kg
[~2022-12-24 13:52] MED LIST changes: +ALBU2.5V5 INH; +OMEPRAZOLE20 M1; +PRED5; +PRESERVISION A1 EAC1; +STIOLTO RESPIMAT4 G1 IH
[2022-12-24] MEDS ORDERED: AMLO5 PO (15:22)
--- NOTE | 2022-12-24 15:42 | NUR ---
12/24/22 1542 KARO ACEVES TETRECAINE: 1518 PLEDGIT: 152
[2022-12-24 16:37] VITALS: BP 126/82
== END 2022-12-24 16:58 | disposition home or self-care (01) ==
LOC: ORSCSDS 13:52
PROVIDERS: Ophthalmology
PROC: 08RK3JZ Replacement of Left Lens with Synthetic Substitute, Percutaneous Approach (ICD-10-PCS; principal; 2022-12-24 15:30)
DX: H25.13 Age-related nuclear cataract, bilateral (principal); H52.202 Unspecified astigmatism, left eye; H35.30 Unspecified macular degeneration; I10 Essential (primary) hypertension; J43.8 Other emphysema; I48.91 Unspecified atrial fibrillation; A49.02 Methicillin resistant Staphylococcus aureus infection, unspecified site; Z87.891 Personal history of nicotine dependence; Z79.899 Other long term (current) drug therapy
CPT/HCPCS: J2250; J3010; J3301; J7040; V2632

== ENCOUNTER 2023-05-01 08:15 | Observation (INO) | payer OTHER ==
[~2023-05-01] VITALS: Ht 180.3 cm; Wt 81.2 kg
[~2023-05-01 08:15] MED LIST changes: -OMEPRAZOLE20 M1; +OMEPRAZOLE20 M1 PO; -PRESERVISION A1 EAC1; +PRESERVISION A1 EAC1 PO; -STIOLTO RESPIMAT4 G1 IH
[2023-05-01 08:34] LABS: BASOPHILS ABSOLUTE AUTO 0.05 K/mm3 (0.00-0.23); BASOPHILS PERCENT AUTO 0 % (0-2); EOSINOPHILS ABSOLUTE AUTO 0.01 K/mm3 (0.00-0.68); EOSINOPHILS PERCENT AUTO 0 % (0-6); Hemoglobin 14.4 g/dL (13.5-17.5); IMMATURE GRAN ABSOLUTE AUTO 0.18 K/mm3 (0.00-0.10); IMMATURE GRAN PERCENT AUTO 1 % (0-1); LYMPHOCYTES ABSOLUTE AUTO 0.32 K/mm3 (0.84-5.20); LYMPHOCYTES PERCENT AUTO 1 % (21-46); MONOCYTES ABSOLUTE AUTO 1.39 K/mm3 (0.16-1.47); MONOCYTES PERCENT AUTO 5 % (4-13); Mean Corpuscular HGB 28.2 pg (26.0-34.0); Mean Corpuscular HGB Conc 33.5 g/dL (31.5-36.5); Mean Corpuscular Volume 84 fL (80-100); Mean Platelet Volume 8.9 fL (9.1-12.4); NEUTROPHILS ABSOLUTE AUTO 23.77 K/mm3 (1.96-9.15); NEUTROPHILS PERCENT AUTO 93 % (41-73); Platelet Count 234 K/mm3 (150-400); RDW Coefficient Variation 13.7 % (11.7-14.2); RDW Standard Deviation 42.6 fL (35.1-46.3); White Blood Cell Count 25.72 K/mm3 (4.00-11.30)
[2023-05-01 08:51] LABS: Albumin, Blood 3.5 g/dL (3.4-5.0); Albumin/Globulin Ratio 1.1 (0.8-1.8); Bilirubin, Total 0.8 mg/dL (0.1-1.0); Bun/Creatinine Ratio 18.5 (12.0-20.0); Calcium, Blood 8.3 mg/dL (8.5-10.1); Creatinine, Blood 0.81 mg/dL (0.60-1.20); Globulin, Blood 3.2 g/dL (2.2-4.0); Potassium, Blood 3.9 mmol/L (3.5-5.5); Total Protein, Blood 6.7 g/dL (6.4-8.2)
[2023-05-01] MEDS ORDERED: Azithromycin 500 MG in NS 250 ML IV ONE (09:55)
[2023-05-01] MEDS ORDERED: CefTRIAXone Sodium 1,000 MG in NS 50 ML IV ONE (09:55)
[2023-05-01 11:23] LABS: Source, Urine Clean Catch
[2023-05-01 11:27] LABS: Appearance, Urine Clear (Clear); Bilirubin, Urine Neg (Neg); Blood, Urine Neg (Neg); Color, Urine Yellow (P-Yellow); Glucose Qualitative, Urine Neg (Neg); Ketones, Urine Neg (Neg); Leukocyte Esterase, Urine Neg (Neg); Nitrite, Urine Neg (Neg); Protein, Urine 2+ (Neg); Specific Gravity, Urine 1.015 (1.003-1.022); Urobilinogen, Urine 1+ (Normal)
[2023-05-01 11:33] LABS: Bacteria Not Seen /hpf; Red Blood Cells, Urine 0-2 /hpf (0-2); Squamous Epithelial Cells Not Seen /hpf (Few); White Blood Cells, Urine 0-2 /hpf (0-5)
[2023-05-01] MEDS ORDERED: Acetaminophen 325 MG TABLET PO PRN (11:40)
[2023-05-01 13:40] VITALS: BP 172/87
[2023-05-01] MEDS ORDERED: ALBU90OI INH (13:57)
[2023-05-01] MEDS ORDERED: MAGNESIUM250 MG PO (13:58)
[2023-05-01] MEDS ORDERED: METO50ER PO (13:58)
[2023-05-01] MEDS ORDERED: Albuterol 2.5 MG/3 ML VIAL INH PRN (15:15)
[2023-05-01] MEDS ORDERED: NS 1,000 ML IV SCH (15:20)
[2023-05-01 16:00] VITALS: BP 163/77
[2023-05-01] MEDS ORDERED: Losartan Potassium 50 MG Tab PO SCH (16:00)
[2023-05-01] MEDS ORDERED: AmLODIPine Besylate 5 MG Tab PO SCH (16:00)
[2023-05-01] MEDS ORDERED: HydrALAZINE HCl 20 MG / ML 1ML Vial IV PRN (16:40)
[2023-05-01 17:21] VITALS: BP 155/86
[2023-05-01 19:51] VITALS: BP 155/83
--- NOTE | 2023-05-01 19:51 | NUR ---
SHIFT SUMMARY- PT ADMITTED THROUGH THE ED FOR AFIB. 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 IVF RUNNING AT THIS TIME. PT IN BED CALL LIGHT IN REACH NO S&S OF DISTRESS TELE IN PLACE NNSR AT 66 WITH PAC'S. LACTIC CRITICAL AT 2.1 MD AWARE. BEDSIDE REPORT COMPLETED WITH NIGHT RN.
[2023-05-01] MEDS ORDERED: Misc. Inhaler INH SCH (21:00)
[2023-05-01] MEDS ORDERED: Misc. Capsule PO SCH (21:00)
[2023-05-02 04:07] VITALS: BP 124/62
[2023-05-02 04:59] LABS: BASOPHILS ABSOLUTE AUTO 0.04 K/mm3 (0.00-0.23); BASOPHILS PERCENT AUTO 0 % (0-2); EOSINOPHILS ABSOLUTE AUTO 0.08 K/mm3 (0.00-0.68); EOSINOPHILS PERCENT AUTO 1 % (0-6); Hematocrit 41.2 % (37.0-53.0); Hemoglobin 13.4 g/dL (13.5-17.5); IMMATURE GRAN ABSOLUTE AUTO 0.03 K/mm3 (0.00-0.10); IMMATURE GRAN PERCENT AUTO 0 % (0-1); LYMPHOCYTES ABSOLUTE AUTO 0.67 K/mm3 (0.84-5.20); LYMPHOCYTES PERCENT AUTO 5 % (21-46); MONOCYTES ABSOLUTE AUTO 1.52 K/mm3 (0.16-1.47); MONOCYTES PERCENT AUTO 12 % (4-13); Mean Corpuscular HGB Conc 32.5 g/dL (31.5-36.5); Mean Corpuscular Volume 86 fL (80-100); Mean Platelet Volume 9.3 fL (9.1-12.4); NEUTROPHILS ABSOLUTE AUTO 10.75 K/mm3 (1.96-9.15); NEUTROPHILS PERCENT AUTO 82 % (41-73); Platelet Count 216 K/mm3 (150-400); RDW Coefficient Variation 13.9 % (11.7-14.2); Red Blood Cell Count 4.78 M/mm3 (4.30-5.90); White Blood Cell Count 13.09 K/mm3 (4.00-11.30)
[2023-05-02 05:17] LABS: Albumin, Blood 3.2 g/dL (3.4-5.0); Albumin/Globulin Ratio 1.1 (0.8-1.8); Bilirubin, Total 0.5 mg/dL (0.1-1.0); Calcium, Blood 8.3 mg/dL (8.5-10.1); Creatinine, Blood 0.87 mg/dL (0.60-1.20); Magnesium, Blood 2.1 mg/dL (1.6-2.4); Potassium, Blood 4.1 mmol/L (3.5-5.5); Total Protein, Blood 6.2 g/dL (6.4-8.2)
--- NOTE | 2023-05-02 06:49 | NUR ---
SHIFT SUMMARY. NO ACUTE CHANGES. PATIENT USING URINAL INDEPENDENTLY AT BEDSIDE. PATINET CALLS APPROPRIATELY AND IS ABLE TO MAKE HIS NEEDS KNOWN. PATIENT C/O SOB; RT IN TO SEE PATIENT DURING THIS SHIFT. BED IS LOCKED IN THE LOWEST POSITION WITH CALL LIGHT IN REACH. NO S/S OF DISTRESS NOTED AT THIS TIME. CARE IS ONGOING.
[2023-05-02 07:30] VITALS: BP 156/82
[2023-05-02] MEDS ORDERED: Enoxaparin 40 MG/0.4 ML SYR SC SCH (09:00)
[2023-05-02] MEDS ORDERED: CefTRIAXone Sodium 1,000 MG in NS 50 ML IV SCH (09:00)
[2023-05-02] MEDS ORDERED: Azithromycin 500 MG in NS 250 ML IV SCH (09:00)
[2023-05-02] MEDS ORDERED: Omeprazole 20 MG CapCR PO SCH (09:00)
[2023-05-02] MEDS ORDERED: Metoprolol Succinate 50 MG TABCR PO SCH (09:00)
[2023-05-02 10:17] VITALS: BP 148/80
--- NOTE | 2023-05-02 10:32 | NUR ---
Palliative Care Supportive Visit Delayed entry from 05/01/23 Met with Aayush, whom likes to be addressed as Hamilton, in his room yesterday afternoon 05/01/23. Hamilton sitting up in bed at 90 degree angle with oxygen in place via NC. He uses 3L O2 at baseline. He denies current CP. Hamilton denies any current need at this time. PC will follow up with pt to review code status.
[2023-05-02 12:15] LABS: Adenovirus Not Detected (NOT DETECT); Bordetella pertussis Not Detected (NOT DETECT); Chlamydophila pneumoniae Not Detected (NOT DETECT); Coronavirus 229E Not Detected (NOT DETECT); Coronavirus HKU1 Not Detected (NOT DETECT); Coronavirus NL63 Not Detected (NOT DETECT); Coronavirus OC43 Not Detected (NOT DETECT); Human Metapneumovirus Not Detected (NOT DETECT); Human Rhinovirus/Enterovirus Not Detected (NOT DETECT); Influenza A/2009-H1 Not Detected (NOT DETECT); Influenza A/H1 Not Detected (NOT DETECT); Influenza A/H3 Not Detected (NOT DETECT); Influenza B Not Detected (NOT DETECT); Mycoplasma pneumoniae Not Detected (NOT DETECT); Parainfluenza Virus 1 Not Detected (NOT DETECT); Parainfluenza Virus 2 Not Detected (NOT DETECT); Parainfluenza Virus 3 Not Detected (NOT DETECT); Parainfluenza Virus 4 Not Detected (NOT DETECT); Respiratory Syncytial Virus Not Detected (NOT DETECT); SARS-Cov-2 (COVID-19), BioFire Not Detected (NOT DETECT)
--- NOTE | 2023-05-02 16:29 | NUR ---
DISCHARGE NOTE- PT AND SPOUSE WERE GIVEN VERBAL AND WRITTEN DISCHARGE INSTRUCTIONS AND ACKNOWLEDGED UNDERSTANDING OF THEM. IV AND TELE DC'D PRIOR TO PT DISCHARGE. PT SPOUSE PROVIDED PT PORTABLE CONCENTRATOR AND THE PT WAS ESCORTED OUT VIA WC BY THIS RN. NO S&S OF DDISTRESS NOTED AT THE TIME OF DISCHARGE.
== END 2023-05-02 16:09 | disposition home health service (06) ==
LOC: ER 08:15 → MEDS 08:16 → ER 11:38 → MEDS 11:38 → ENPENDDIS 05-02 15:15 → MEDS 05-02 16:09
PROVIDERS: Emergency Medicine; Family Medicine; Family Medicine Adult Medicine; ADMIT Hospitalist
DX: I48.91 Unspecified atrial fibrillation (principal); R65.10 Systemic inflammatory response syndrome (SIRS) of non-infectious origin without acute organ dysfunction; J44.9 Chronic obstructive pulmonary disease, unspecified; R04.2 Hemoptysis; K21.9 Gastro-esophageal reflux disease without esophagitis; E78.5 Hyperlipidemia, unspecified; I50.9 Heart failure, unspecified; I11.0 Hypertensive heart disease with heart failure; Z87.891 Personal history of nicotine dependence; Z88.8 Allergy status to other drugs, medicaments and biological substances; Z11.52 Encounter for screening for COVID-19
CPT/HCPCS: 0202U; 36415; 71045; 71260; 80053; 81001; 83605; 83735; 83880; 84145; 84484; 85025; 93005; 93010; 94640; 94664; 94760; 96365-59; 96366-59; 96375-59; 97116; 97162; 97530; 99285-25; A9270; G0378; J0456; J0696; J7030; J7050; Q9967

== ENCOUNTER 2024-01-13 01:32 | Emergency (ER) | payer OTHER ==
[~2024-01-13] VITALS: Ht 180.3 cm; Wt 76.7 kg
[~2024-01-13 01:32] MED LIST changes: +MAGNESIUM250 MG PO; +METO50ER PO
[2024-01-13 01:40] VITALS: BP 132/99
[2024-01-13 01:58] LABS: BASOPHILS ABSOLUTE AUTO 0.04 K/mm3 (0.00-0.23); BASOPHILS PERCENT AUTO 1 % (0-2); EOSINOPHILS ABSOLUTE AUTO 0.41 K/mm3 (0.00-0.68); EOSINOPHILS PERCENT AUTO 6 % (0-6); Hematocrit 41.7 % (37.0-53.0); Hemoglobin 13.4 g/dL (13.5-17.5); IMMATURE GRAN ABSOLUTE AUTO 0.05 K/mm3 (0.00-0.10); IMMATURE GRAN PERCENT AUTO 1 % (0-1); LYMPHOCYTES ABSOLUTE AUTO 1.36 K/mm3 (0.84-5.20); LYMPHOCYTES PERCENT AUTO 19 % (21-46); MONOCYTES ABSOLUTE AUTO 1.07 K/mm3 (0.16-1.47); MONOCYTES PERCENT AUTO 15 % (4-13); Mean Corpuscular HGB 26.5 pg (26.0-34.0); Mean Corpuscular HGB Conc 32.1 g/dL (31.5-36.5); Mean Corpuscular Volume 83 fL (80-100); Mean Platelet Volume 9.2 fL (9.1-12.4); NEUTROPHILS ABSOLUTE AUTO 4.43 K/mm3 (1.96-9.15); NEUTROPHILS PERCENT AUTO 60 % (41-73); Platelet Count 258 K/mm3 (150-400); RDW Coefficient Variation 14.5 % (11.7-14.2); RDW Standard Deviation 43.3 fL (35.1-46.3); Red Blood Cell Count 5.05 M/mm3 (4.30-5.90); White Blood Cell Count 7.36 K/mm3 (4.00-11.30)
[2024-01-13 02:04] LABS: Magnesium, Blood 1.9 mg/dL (1.6-2.4)
[2024-01-13 02:05] LABS: Albumin, Blood 3.4 g/dL (3.4-5.0); Albumin/Globulin Ratio 1.1 (0.8-1.8); Bilirubin, Total 0.3 mg/dL (0.1-1.0); Bun/Creatinine Ratio 17.4 (12.0-20.0); Calcium, Blood 8.4 mg/dL (8.5-10.1); Creatinine, Blood 0.86 mg/dL (0.60-1.20); Globulin, Blood 3.1 g/dL (2.2-4.0); Total Protein, Blood 6.5 g/dL (6.4-8.2)
== END 2024-01-13 05:25 | disposition home or self-care (01) ==
LOC: ER 01:32
PROVIDERS: Emergency Medicine
DX: I48.0 Paroxysmal atrial fibrillation (principal); J44.9 Chronic obstructive pulmonary disease, unspecified; I10 Essential (primary) hypertension; Z87.891 Personal history of nicotine dependence; Z79.899 Other long term (current) drug therapy; Z88.8 Allergy status to other drugs, medicaments and biological substances
CPT/HCPCS: 71045; 80053; 83735; 84484; 85025; 93005; 93010

== ENCOUNTER 2024-10-12 11:25 | Emergency (ER) | payer OTHER ==
[~2024-10-12] VITALS: Ht 177.8 cm; Wt 73.0 kg
[2024-10-12 12:51] LABS: BASOPHILS ABSOLUTE AUTO 0.03 K/mm3 (0.00-0.23); BASOPHILS PERCENT AUTO 0 % (0-2); EOSINOPHILS ABSOLUTE AUTO 0.16 K/mm3 (0.00-0.68); EOSINOPHILS PERCENT AUTO 2 % (0-6); Hematocrit 38.9 % (37.0-53.0); Hemoglobin 12.9 g/dL (13.5-17.5); IMMATURE GRAN ABSOLUTE AUTO 0.02 K/mm3 (0.00-0.10); IMMATURE GRAN PERCENT AUTO 0 % (0-1); LYMPHOCYTES ABSOLUTE AUTO 1.17 K/mm3 (0.84-5.20); LYMPHOCYTES PERCENT AUTO 16 % (21-46); MONOCYTES ABSOLUTE AUTO 0.82 K/mm3 (0.16-1.47); MONOCYTES PERCENT AUTO 11 % (4-13); Mean Corpuscular HGB Conc 33.2 g/dL (31.5-36.5); Mean Corpuscular Volume 89 fL (80-100); NEUTROPHILS ABSOLUTE AUTO 5.32 K/mm3 (1.96-9.15); NEUTROPHILS PERCENT AUTO 71 % (41-73); NRBC ABSOLUTE 0.00 K/mm3 (0.00-0.02); NRBC Auto 0.0 /100 WBC (0.0-0.2); Platelet Count 227 K/mm3 (150-400); RDW Coefficient Variation 12.8 % (11.7-14.2); RDW Standard Deviation 42.1 fL (35.1-46.3)
[2024-10-12 13:19] LABS: Alanine Aminotransfer (ALT/SGP 27.0 U/L (12-78); Albumin, Blood 3.7 g/dL (3.4-5.0); Albumin/Globulin Ratio 1.3 (0.8-1.8); Anion Gap 6.0 mmol/L (3-11); Aspartate Aminotrans (AST/SGOT 22.0 U/L (12-37); Bilirubin, Total 0.8 mg/dL (0.1-1.0); Blood Urea Nitrogen 17.0 mg/dL (8-24); CO2, Blood 36.0 mmol/L (21-32); Calcium, Blood 8.3 mg/dL (8.5-10.1); Chloride, Blood 94.0 mmol/L (98-108); Creatinine, Blood 0.76 mg/dL (0.60-1.20); Globulin, Blood 2.9 g/dL (2.2-4.0); Glucose, Blood 88.0 mg/dL (70-99); Potassium, Blood 3.8 mmol/L (3.5-5.5); Sodium, Blood 132.0 mmol/L (136-145); Total Protein, Blood 6.6 g/dL (6.4-8.2)
[2024-10-12 15:40] VITALS: BP 168/91
== END 2024-10-12 15:48 | disposition home or self-care (01) ==
LOC: ER 11:25
PROVIDERS: Emergency Medicine
DX: R07.89 Other chest pain (principal); I48.0 Paroxysmal atrial fibrillation; I10 Essential (primary) hypertension; J44.9 Chronic obstructive pulmonary disease, unspecified; Z99.81 Dependence on supplemental oxygen; Z87.891 Personal history of nicotine dependence
CPT/HCPCS: 71046; 80053; 84484; 85025; 93005; 93010; 99285-25

== ENCOUNTER 2024-10-26 13:22 | Inpatient (IN) | payer OTHER, MEDICARE ==
[~2024-10-26] VITALS: Ht 180.3 cm; Wt 74.2 kg
[2024-10-26 14:20] LABS: pH Blood Venous 7.49 (7.34-7.37)
[2024-10-26 14:31] LABS: BASOPHILS ABSOLUTE AUTO 0.02 K/mm3 (0.00-0.23); BASOPHILS PERCENT AUTO 0 % (0-2); EOSINOPHILS ABSOLUTE AUTO 0.01 K/mm3 (0.00-0.68); EOSINOPHILS PERCENT AUTO 0 % (0-6); Hematocrit 39.8 % (37.0-53.0); Hemoglobin 13.5 g/dL (13.5-17.5); IMMATURE GRAN ABSOLUTE AUTO 0.06 K/mm3 (0.00-0.10); IMMATURE GRAN PERCENT AUTO 1 % (0-1); LYMPHOCYTES ABSOLUTE AUTO 0.53 K/mm3 (0.84-5.20); LYMPHOCYTES PERCENT AUTO 4 % (21-46); MONOCYTES ABSOLUTE AUTO 0.14 K/mm3 (0.16-1.47); MONOCYTES PERCENT AUTO 1 % (4-13); Mean Corpuscular HGB Conc 33.9 g/dL (31.5-36.5); Mean Corpuscular Volume 86 fL (80-100); NEUTROPHILS ABSOLUTE AUTO 12.12 K/mm3 (1.96-9.15); NEUTROPHILS PERCENT AUTO 94 % (41-73); NRBC ABSOLUTE 0.00 K/mm3 (0.00-0.02); NRBC Auto 0.0 /100 WBC (0.0-0.2); Platelet Count 239 K/mm3 (150-400); RDW Coefficient Variation 12.9 % (11.7-14.2); RDW Standard Deviation 40.0 fL (35.1-46.3)
[2024-10-26 14:44] LABS: Anion Gap 7.0 mmol/L (3-11); Blood Urea Nitrogen 12.0 mg/dL (8-24); CO2, Blood 32.0 mmol/L (21-32); Calcium, Blood 8.2 mg/dL (8.5-10.1); Chloride, Blood 92.0 mmol/L (98-108); Creatinine, Blood 0.7 mg/dL (0.60-1.20); Glucose, Blood 92.0 mg/dL (70-99); Potassium, Blood 4.4 mmol/L (3.5-5.5); Sodium, Blood 127.0 mmol/L (136-145)
[2024-10-26 15:01] LABS: Influenza A, PCR NEGATIVE (NEGATIVE); Influenza B, PCR NEGATIVE (NEGATIVE); Resp Syncytial Virus, PCR NEGATIVE (NEGATIVE); SARS-Cov-2 (COVID-19) PCR, MMC NEGATIVE (NEGATIVE)
[2024-10-26] MEDS ORDERED: Diltiazem HCl 5 MG / ML 5ML Vial IV ONE ×2 (16:05→16:40)
[2024-10-26] MEDS ORDERED: Ipratropium/Albuterol SulF 2.5-0.5MG/3 ML Amp INH SCH (17:10)
[2024-10-26] MEDS ORDERED: Ondansetron HCl 2 MG / ML 2ML Vial IV PRN (17:10)
[2024-10-26] MEDS ORDERED: Albuterol 2.5 MG/3 ML VIAL INH PRN (17:15)
[2024-10-26] MEDS ORDERED: NS 1,000 ML IV SCH (17:15)
[2024-10-26] MEDS ORDERED: Metoprolol Tartrate 1 MG/ML 5 ML VIAL IV PRN (17:20)
[2024-10-26] MEDS ORDERED: CefTRIAXone Sodium 1,000 MG in NS 100 ML IV SCH (18:00)
[2024-10-26 20:11] VITALS: BP 148/91
[2024-10-26] MEDS ORDERED: Lactobacil 2-S.Thermo-Bifido 1 1 Cap PO SCH (21:00)
[2024-10-26] MEDS ORDERED: METO25ER PO (22:02)
[2024-10-26] MEDS ORDERED: AZIT250 PO (22:04)
[2024-10-26] MEDS ORDERED: NITR.4SL SL (22:06)
[2024-10-27] VITALS (12 sets, daily range): BP systolic 118–175; BP diastolic 74–113
--- NOTE | 2024-10-27 06:19 | NUR ---
SHIFT SUMMARY PATIENT ARIVED TO PCU 14 VIA STRETCHER AT 1999. HE IS ALERT AND ORIENTED X4, 1 ASSIST FOR TRANSFERS. PATIENT DENIES ANY CHEST PAIN AT THIS TIME. IS SHORT OF BREATH AT REST, CURRENTLY ON HOME DOSE O2 AT 3 LITERS VIA NC. VITAL SIGNS STABLE. NO ACUTE ISSUES NOTED OVERNIGHT. WILL CONTINUE TO MONITOR. CALL LIGHT WITHIN REACH.
[2024-10-27 06:26] LABS: Hematocrit 37.7 % (37.0-53.0); Hemoglobin 12.6 g/dL (13.5-17.5); Mean Corpuscular HGB Conc 33.4 g/dL (31.5-36.5); Mean Corpuscular Volume 87 fL (80-100); NRBC ABSOLUTE 0.00 K/mm3 (0.00-0.02); NRBC Auto 0.0 /100 WBC (0.0-0.2); Platelet Count 262 K/mm3 (150-400); RDW Coefficient Variation 12.8 % (11.7-14.2); RDW Standard Deviation 40.6 fL (35.1-46.3)
[2024-10-27 06:52] LABS: Magnesium, Blood 1.8 mg/dL (1.6-2.4)
[2024-10-27 06:53] LABS: Anion Gap 5.0 mmol/L (3-11); Blood Urea Nitrogen 14.0 mg/dL (8-24); CO2, Blood 34.0 mmol/L (21-32); Calcium, Blood 8.3 mg/dL (8.5-10.1); Chloride, Blood 90.0 mmol/L (98-108); Creatinine, Blood 0.76 mg/dL (0.60-1.20); Glucose, Blood 101.0 mg/dL (70-99); Potassium, Blood 3.7 mmol/L (3.5-5.5); Sodium, Blood 125.0 mmol/L (136-145)
[2024-10-27] MEDS ORDERED: CefTRIAXone Sodium 1,000 MG in NS 100 ML IV SCH (09:00)
[2024-10-27] MEDS ORDERED: Polyethylene Glycol 3350 17 gm PO SCH (18:05)
--- NOTE | 2024-10-27 18:11 | NUR ---
EOS: NO SIGNIFICANT CHANGES FROM ASSUMPTION, PATIENT WAS FAVIAN TO WORK WITH PT/OT, DENIES CHEST PAIN PRESSURE OR INCREASED SOB AT REST. MIRALAX GIVEN HE ENDRSES LAST BM 10/25/24. OXYGEN HAS BEEN WELL AT 2.5 TO 3L. SPO2 >88%. STOPPED FLUIDS DUE TO INCREASED FLUID INTAKE VERY NET POSITIVE. URINATING WELL. PATIENT IS NOW MED NO TELE.
--- NOTE | 2024-10-27 20:15 | NUR ---
PHYSICIAN COMMUNICATION PATIENT CURRENTLY AFIB WITH RVR IN THE 150'S, SYMPTOMATIC WITH CHEST PAIN AND BACK PAIN POST IV LOPRESSER PUSH FOR HEART RATE IN THE 170'S. INFORMED DR MONTES AND ASKED FOR IV CARDIZEM PUSH THE PATIENT WAS AFIB WITH RVR IN THE ER AND RESPONDED TO THE TREATMENT. DR MONTES TO INPUT ORDERS.
[2024-10-27] MEDS ORDERED: Metoprolol Tartrate 1 MG/ML 5 ML VIAL IV ONE ×2 (20:30→21:10)
--- NOTE | 2024-10-27 20:30 | NUR ---
PHYSICIAN COMMUNICATION DR MONTES TO BEDSIDE TO ASSESS PATIENT. PATIENT CONTINUES TO BE SYMPTOMATIC. DR MONTES WANTS TO TRY ANOTHER DOSE OF 5 MG IV LOPRESSOR NOW.
[2024-10-28] VITALS (10 sets, daily range): BP systolic 17–158; BP diastolic 80–103
[2024-10-28 04:08] LABS: Hematocrit 38.5 % (37.0-53.0); Hemoglobin 13.2 g/dL (13.5-17.5); Mean Corpuscular HGB Conc 34.3 g/dL (31.5-36.5); Mean Corpuscular Volume 86 fL (80-100); NRBC ABSOLUTE 0.00 K/mm3 (0.00-0.02); NRBC Auto 0.0 /100 WBC (0.0-0.2); Platelet Count 279 K/mm3 (150-400); RDW Coefficient Variation 13.0 % (11.7-14.2); RDW Standard Deviation 40.5 fL (35.1-46.3)
[2024-10-28 04:33] LABS: Anion Gap 7.0 mmol/L (3-11); Blood Urea Nitrogen 16.0 mg/dL (8-24); CO2, Blood 34.0 mmol/L (21-32); Calcium, Blood 8.1 mg/dL (8.5-10.1); Chloride, Blood 93.0 mmol/L (98-108); Creatinine, Blood 0.93 mg/dL (0.60-1.20); Glucose, Blood 93.0 mg/dL (70-99); Potassium, Blood 4.0 mmol/L (3.5-5.5); Sodium, Blood 130.0 mmol/L (136-145)
--- NOTE | 2024-10-28 06:12 | NUR ---
SHIFT SUMMARY PATIENT ALERT AD ORIENTED X4. HAD NO COMPLAINTS OF PAIN. PATIENT MEDICATED WITH A TOTAL OF 4 IV LOPRESSOR PUSHES OVERNIGHT TO HELP CONTROL HEART RATE. CURRENTLY AFIB 110-120'S ON TELE AT REST AND INCREASES TO THE 140'S-150'S WITH MINIMAL EXERTION, BLOOD PRESSURE STABLE. PATIENT REPORTED SHORTNESS OF BREATH, BREATHING TREATMENTS PER RT. WILL CONTINUE TO MONITOR. CALL LIGHT WITHIN REACH.
[2024-10-28] MEDS ORDERED: Cholecalciferol 1000 Unit Tablet (=25MCG) PO SCH (09:00)
[2024-10-28] MEDS ORDERED: Polyethylene Glycol 3350 17 gm PO SCH (09:00)
[2024-10-28] MEDS ORDERED: Beta-Carotene (A) W-C & E/Min 1 Tab PO SCH (09:00)
--- NOTE | 2024-10-28 10:01 | NUR ---
ASSUMPTION: PATIENT CONVERTED TO AFIB FOR NIGHT RN, HR STILL UNCONTROLLED DESPITE MULTIPLE METOPROLOL PUSHES, NIGHT APPEARS TO GAVE GIVEN 3-4 PUSHES, I HAVE PUSHED 2 X 5 mg PUSHES AND NOW DIGOXIN WITH MINIMAL IMPROVEMENT, PATIENT EXPERIENCING MINIMAL CHEST PAIN WHEN HR >140. WHEN HR <120 DENIES CHEST PAIN. PATIENT O2 DEMAND FROM 3-4L FOR SPO2 >88. ACUTE CONCERNS ABOVE.
[2024-10-28] MEDS ORDERED: Diltiazem HCl 5 MG / ML 5ML Vial IV STA (12:50)
--- NOTE | 2024-10-28 17:24 | NUR ---
EOS: PATIENT NEEDED CARDIZEM PUSH 15mg AND DILT DRIP AT 5mg FOR APPROXIMATELY 2 HOURS BEFORE CONVERSION BACK TO SR WITH PAC'S. PATIENT HAS HAD MUCH IMPROVEMENT WITH BREATHING AFTER CONVERSION AND NEW MED ORDERS PLEASE SEE MAR. PATIENT DENIES CHEST PAIN PRESSURE OR SOB AT REST. NO ACUTE CONCERNS FROM THIS RN PAST THIS, HAS BEEN ON 2.5-3L FOR O2 NEEDS >88% SPO2. BM TODAY, BEDBATH, MUCH EDUCATION PROVIDED TO AND PATIENT. PLAN OF CARE.
[2024-10-29] VITALS (8 sets, daily range): BP systolic 124–169; BP diastolic 77–121
[2024-10-29 03:55] LABS: Hematocrit 38.2 % (37.0-53.0); Hemoglobin 13.0 g/dL (13.5-17.5); Mean Corpuscular HGB Conc 34.0 g/dL (31.5-36.5); Mean Corpuscular Volume 86 fL (80-100); NRBC ABSOLUTE 0.00 K/mm3 (0.00-0.02); NRBC Auto 0.0 /100 WBC (0.0-0.2); Platelet Count 260 K/mm3 (150-400); RDW Coefficient Variation 12.9 % (11.7-14.2); RDW Standard Deviation 40.6 fL (35.1-46.3)
[2024-10-29 04:12] LABS: Anion Gap 9.0 mmol/L (3-11); Blood Urea Nitrogen 12.0 mg/dL (8-24); CO2, Blood 31.0 mmol/L (21-32); Calcium, Blood 8.4 mg/dL (8.5-10.1); Chloride, Blood 95.0 mmol/L (98-108); Creatinine, Blood 0.76 mg/dL (0.60-1.20); Glucose, Blood 94.0 mg/dL (70-99); Potassium, Blood 3.7 mmol/L (3.5-5.5); Sodium, Blood 131.0 mmol/L (136-145)
--- NOTE | 2024-10-29 05:53 | NUR ---
SHIFT SUMMARY: PT A&OX4 CALM AND COOPERATIVE. HARD OF HEARING AND MUMBLED SPEECH. SBP 140S-150S. BEGAN INCREASED DOSE OF METOPROLOL 75MG PO. HR 70S-90S. MAINTAINED >92% ON 3L NC. AUDIBLE EXPIRATORY WHEEZING IN ALL LOBES. FREQUENT COUGHING. SUCTION PROVIDED. BLOOD TINGED SPUTUM. PT REPORTS THAT IS NORMAL FOR HIM. USES URINAL AT BEDSIDE. 1 PERSON ASSIST WITH FWW. GOWN AND ATTENDS CHANGED. CALL LIGHT WITHIN REACH. BED IS LOW AND LOCKED. CONTINUE WILL CURRENT PLAN OF CARE.
--- NOTE | 2024-10-29 10:54 | NUR ---
md rounded: md rounded and spoke with patient regarding possibly going home today depending on echo results. md to look at that and will change up his home medciations as needed. pt reported some anxiety behind his afib coming back and was educated that is what the doctor will be working on with those change in medications. md gave verbal order to place a suppository to help with patients inability to void this morning.
--- NOTE | 2024-10-29 14:32 | NUR ---
MD CONTACTED THIS RN CALLED MD REGARDING PATIENT ECHO RESULTS BEING BACK. MD AWARE AND STATED SHE WILL TAKE A LOOK AT IT.
--- NOTE | 2024-10-29 17:08 | NUR ---
SHIFT SUMMARY: PATIENT IS ALERT AND ORIENTED X4 & COOPERATIVE WITH HIS CARE, IS ABL TO MAKE NEEDS KNOWN & USES CALL LIGHT APPROPRAITELY. PATIENT HAS MUMBLED SPEECH THAT IS NORMAL PER HIM AND REPORT. PATIENT SATTING >92% ON BASELINE OXYGEN AT 3 LITERS VIA NASAL CANNULA. ON TELE SHOWING SINUS RYTHM WITH PAC'S AND PVC'S AT 78. PATIENT GETTING RT TREATEMTNS SCHEDULED. PATIENT AT BEDSDIE THROUGHOUT SHIFT. PLAN WILL BE TO DISCHARGE TOMORROW AND MEDICATIONS WERE SWITCHED TODAY AND METOPROL WAS DISCONTINUED AND NEW MEDCIATIONS WERE STARTED THIS EVENING. WIRE BRUSH OPERATOR TALKED WITH PATIENT AND AND WAS ABLE TO GET [facility] WITH [facility] TO GET [facility] MORE HELP WITH [facility]AREGIVERS AT HOME. PATIENT AWARE PLAN WILL BE TO DISCHARGE TOMORORW. HAS CALL LIGHT WITHIN REACH, BED IN LOWEST POSITION & STATING NOTHING ELSE IS NEEDED AT THIS TIME.
[2024-10-29] MEDS ORDERED: Metoprolol Tartrate 1 MG/ML 5 ML VIAL IV PRN (21:46)
[2024-10-29] MEDS ORDERED: Diltiazem HCl 5 MG / ML 5ML Vial IV SCH (22:41)
[2024-10-30] VITALS (14 sets, daily range): BP systolic 105–144; BP diastolic 59–92
--- NOTE | 2024-10-30 01:48 | NUR ---
PHYSICIAN COMMUNICATION PT CONVERTED TO AFIB RVR SUSTAINING 110S-120S AROUND 2129. PT REPORTS HE FEELS HIS HEART IS RACING. CONSULTED WITH PROVIDER AND PROVIDER ORDERED DILTIAZEM 10MG IV PUSH X2 DIRECTED. GIVEN DILTIAZEM 10 MG IV PUSH X1. PT HR SUSTAINING AFIB 90S-100 AFTER MEDICATING.
--- NOTE | 2024-10-30 03:05 | NUR ---
PT HR SUSTAINED AFIB 110S-130S. GIVEN SECOND DOSE OF DILTIAZEM 10MG IV PUSH. HR AFIB 80S-100S AFTER MEDICATING.
[2024-10-30 04:44] LABS: Anion Gap 8.0 mmol/L (3-11); Blood Urea Nitrogen 15.0 mg/dL (8-24); CO2, Blood 32.0 mmol/L (21-32); Calcium, Blood 8.6 mg/dL (8.5-10.1); Chloride, Blood 95.0 mmol/L (98-108); Creatinine, Blood 0.91 mg/dL (0.60-1.20); Glucose, Blood 89.0 mg/dL (70-99); Magnesium, Blood 2.0 mg/dL (1.6-2.4); Potassium, Blood 3.8 mmol/L (3.5-5.5); Sodium, Blood 131.0 mmol/L (136-145)
--- NOTE | 2024-10-30 05:47 | NUR ---
SHIFT SUMMARY: PT A&OX4 CALM AND COOPERATIVE. HARD OF HEARING AND MUMBLED SPEECH. CONVERTED FROM SINUS RHYTHM TO AFIB RVR SUSTAINING 110S-120S. SPOKE WITH PROVIDER AND GIVEN DILTIAZEM 10MG IV PUSH X2. SEE PREVIOUS NOTES. HR AFIB 80S-100S AFTER MEDICATING. MAINTAINED >92% ON 3L NC. OCCASIONAL COUGHING. CONTINUES TO HAVE BLOOD TINGED SPUTUM. USES URINAL INDEPENDENTLY. 1 PERSON ASSIST WITH FWW. CALL LIGHT WITHIN REACH. BED IS LOW AND LOCKED. CONTINUE WITH CURRENT PLAN OF CARE.
--- NOTE | 2024-10-30 07:17 | NUR ---
assumption note: this rn to assume care of patient. patient resting in bed, easily arousable to voice. patient is alert and oriented x4 able to make needs known. vital signs stable and patient denied any chest pain/pressure or feeling shortness of breath.
--- NOTE | 2024-10-30 08:08 | NUR ---
MD CONTACT: MD CALLED THIS RN REGARDING PATIENTS EVENTS LAST NIGHT WITH NEEDING DILT PUSHES AND WILL BE PLACING ORDERS TO CHANGE ORAL MEDCIATIONS THIS MORNING. THIS RN AWAITING ORDERS
--- NOTE | 2024-10-30 09:34 | NUR ---
HEART RATE: PATIENT HEART RATE INCREASED AND TOUCHED 150'S, WAS GIVEN PRN PO DILT PER EMAR HEART RATE CURRENTLY SITTING BETWEEN 115-120.
--- NOTE | 2024-10-30 11:47 | NUR ---
md rounded md rounded and spoke with patient regarding heart rate and needing additional dosing of cardizem. md was made aware that patients heart rate spiked into 150 and did blow into a syringe that brought his heart rate down. patient agreeable to stay another night to monitor and adjust medications
--- NOTE | 2024-10-30 17:22 | NUR ---
SHIFT SUMMARY: PATIENT IS ALERT AND ORIENTED X4 & COOPERATIVE WITH HIS CARE, IS ABLE TO MAKE NEEDS KNOWN & USES CALL LIGHT APPRORIATELY. PATIENT SATTING >92% ON 3 LITERS VIA NASAL CANNULA, PATIENT REPORTS IS HIS BASELINE. ON TELE SHOWING AFIB WITH RATE BETWEEN 90-110. PATIENT DID TOUCH INTO 150 AND WAS GIVEN PRN PO CARDIZEM PER EMAR AND TOELRATED IT WELL. WAS ALSO INSTRUCTED TO BLOW INTO SYRINGE TO HELP LOWER HEART RATE AND THAT DID WORK, WAS NOTIFIED AFTER THIS WELL WITH NO NEW ORDERS OR CHANGES IN PLAN. TODAY CARDIZEM PO WAS INCREASED AND PATIENT TOLERATED IT WELL. WITH EXERTION TO THE BATHROOM THORUGHOUT THE SHIFT PATIENT HEART RATE HIGHEST TOUCHED 120. AT BEDSIDE THROUGHOUT SHIFT. PLAN CONTINUES TO RECEIVE IV ANTIBIOTCIS AND MONITOR TO ENSURE HEART RATE IS UNDER CONTORL. POSSIBLE DISCHARGE TOMORROW BUT PATIENT AWARE HE MAY NEED TO STAY ANOTHER NIGHT AND AGREEABLE IF THAT IS THE CASE. PATIENT CURRENTLY SITTING AT THE EDGE OF THE BED EATING DINNER, BED IN LOWEST LOCKED POSITION, CALL LIGHT WITHIN REACH AND STATING NOTHIGN ELSE IS NEEDED AT THIS TIME.
[2024-10-31] VITALS (8 sets, daily range): BP systolic 124–157; BP diastolic 66–91
--- NOTE | 2024-10-31 06:09 | NUR ---
SHIFT SUMMARY: PT A&OX4 CALM AND COOPERATIVE. HARD OF HEARING AND MUMBLED SPEECH. BP STABLE. HR AFIB 90S-110S AT REST AND 100S-130S WITH EXERTION. TOUCHED 150S BRIEFLY. PRN PO CARDIZEM 30MG GIVEN. AFIB 80S-120S AFTER MEDICATING PER EMAR. MAINTAINING 88-92% ON 3-4L NC. USES URINAL INDEPENDENTLY IN BED. 1 PERSON ASSIST WITH FWW AROUND ROOM. FLUID RESTRICTION OF 500ML NOC SHIFT FOLLOWED. CALL LIGHT WITHIN REACH. BED IS LOW AND LOCKED. CONTINUE WITH CURRENT PLAN OF CARE.
--- NOTE | 2024-10-31 07:07 | NUR ---
ASSUMPTION NOTE: THIS RN TO ASSUME CARE OF PATIENT. PATIENT IS IN BED CURRENLTY GETTING A BREATHING TREATMENT. PATIENT IS ALERT AND ORIETNED X4, ON TELE SHOWING SINUS RYTHM 85. SATTING >92% ON 3 LITERS VIA NASAL CANNULA. PATIENT IS LOWEST LOCKED POSITION, CALL LIGHT WITHIN REACH.
[2024-10-31] MEDS ORDERED: Diltiazem HCl 300 MG Cap.CD PO SCH (08:00)
--- NOTE | 2024-10-31 11:06 | NUR ---
MD LLOYD: MD ROUNDED AND PATIENT AWARE HE WILL BE STAYING ONE MORE NIGHT AND PATIENT AGREEABLE. PATIENT AWARE IS MEDICAL STATUS WITH TELE NOW.
--- NOTE | 2024-10-31 17:21 | NUR ---
shift summary: PATIENT IS ALERT AND ORIENTED X4 & COOPERATIVE WITH HIS CARE, ABLE TO MAKE NEEDS KNOWN USES CALL LIGHT APPRORIATELY. PATIENT SATTING >92% ON 3 LITERS VIA NASAL CANULA, MD WOULD LIKE PATIENT TO SATY AT 3 LITERS VIA NASAL CANNULA AND SATTING BETWEEN 92-94% WHILE RECEIVING OXYGEN. PATIENT ON TELE SHOWING SINUS CURRENTLY, STARTED THE SHIFT READING AFIB BUT CONVERTERED SHORTLY AFTER 7AM. PATIENT AT BEDSIDE TRHOUGHOUT THE SHIFT. PATIENT CARDIZEM PO WAS INCREASED TODAY AND TOLERATED IT WELL. PATIENT AGREEABLE TO STAY ANOTHER NIGHT. PATIENT IS ONE PERSON ASSIST WITH FRONT WHEELED WALKER. PATIENT IS NOW MEDICAL WITH TELE STATUS. CURRENTLY EATING DINNER,CALL LIGHT WITHIN REACH & BED IN LOWEST LOCKED POSITION, STATING NOTHING ELSE IS CURRENTLY NEEDED AT THIS TIME.
[2024-11-01 04:57] VITALS: BP 146/70
[2024-11-01 05:42] VITALS: BP 148/57
--- NOTE | 2024-11-01 06:13 | NUR ---
SHIFT SUMMARY ASSUMED CARE AT 0535. A/Ox4, VSS ON 3L. CONTINUOUS PULSE OX AND TELE MONITORING. 2000 ML FLUID RESTRICTION. SUCTION AT BEDSIDE PER PT REQUEST; PT REPORTS SPUTUM CONTINUES. SAFETY PRECAUTIONS IN PLACE, CALL LIGHT IN REACH.
--- NOTE | 2024-11-01 06:29 | NUR ---
PT NOTIFIED SPOUSE OF NEW ROOM NUMBER.
[2024-11-01 07:59] VITALS: BP 135/68
[2024-11-01] MEDS ORDERED: NS 250 ML IV PRN (09:15)
[2024-11-01] MEDS ORDERED: CefTRIAXone 1000 MG Vial ONE (09:51)
--- NOTE | 2024-11-01 10:38 | NUR ---
TELE VERIFICATION SCANNED TELE STRIP DATED 11/01/24 AT 07:29 VERIFIED NSR IN THE 80'S W/PAC'S.
[2024-11-01] MEDS ORDERED: VISBIOME 112.51 EACH PO (11:17)
[2024-11-01] MEDS ORDERED: AMOCLA875 PO (11:18)
[2024-11-01] MEDS ORDERED: MIRALAX1714 PO (11:18)
[2024-11-01] MEDS ORDERED: DILT30 PO (11:20)
[2024-11-01] MEDS ORDERED: CARTIA XT300 M1 PO (11:21)
[2024-11-01] MEDS ORDERED: GABA100 PO (11:21)
[2024-11-01] MEDS ORDERED: GUAIFENESIN ER600 MG PO (11:21)
--- NOTE | 2024-11-01 13:14 | NUR ---
DC SUMMARY PT DC THIS SHIFT DC INSTRUCTION GONE OVER WITH PT WHOM STATED UNDERSTANDING. PT WAS ESCORTED OUT TO PRIVATE VEHICLE VIA W/C BY HEADING REPAIRER AND OCCOMPANIED BY HIS .
== END 2024-11-01 13:15 | disposition home health service (06) | DRG 871 ==
LOC: ER 13:22 → PCU 17:09 → MEDS 11-01 05:35 → ENPENDDIS 11-01 10:57 → MEDS 11-01 13:15
PROVIDERS: Emergency Medicine; Family Medicine; Internal Medicine; Nurse Practitioner Acute Care; Student in an Organized Health Care Education/Training Program; ADMIT Internal Medicine
DX: A41.59 Other Gram-negative sepsis (principal); J15.0 Pneumonia due to Klebsiella pneumoniae; J15.211 Pneumonia due to Methicillin susceptible Staphylococcus aureus; E22.2 Syndrome of inappropriate secretion of antidiuretic hormone; J44.0 Chronic obstructive pulmonary disease with (acute) lower respiratory infection; J96.11 Chronic respiratory failure with hypoxia; C34.12 Malignant neoplasm of upper lobe, left bronchus or lung; A41.01 Sepsis due to Methicillin susceptible Staphylococcus aureus; I48.0 Paroxysmal atrial fibrillation; I10 Essential (primary) hypertension; K21.9 Gastro-esophageal reflux disease without esophagitis; G62.9 Polyneuropathy, unspecified; E83.51 Hypocalcemia; Z99.81 Dependence on supplemental oxygen; Z92.3 Personal history of irradiation; Z88.8 Allergy status to other drugs, medicaments and biological substances; Z90.2 Acquired absence of lung [part of]; Z87.891 Personal history of nicotine dependence; Z88.0 Allergy status to penicillin
CPT/HCPCS: 36415; 71260; 80048; 82803; 83605; 83735; 84443; 84484; 85025; 85027; 87040; 87070; 87077; 87186; 87205; 87637; 93005; 93010; 93306; 93971; 94640; 94664; 94760; 94762; 96374; 96376; 97110; 97112; 97161; 97165; 97530; 97535; 99285-25; A9270; J0456; J0696; J1160; J7030; J7050; Q9967

== ENCOUNTER 2025-02-27 19:38 | Emergency (ER) | payer OTHER ==
[~2025-02-27] VITALS: Ht 170.2 cm; Wt 72.6 kg
[~2025-02-27 19:38] MED LIST changes: +AMOCLA875 PO; +AZIT250 PO; +CARTIA XT300 M1 PO; +DILT30 PO; +GABA100 PO; +GUAIFENESIN ER600 MG PO; +MIRALAX1714 PO; +NITR.4SL SL
[2025-02-27 21:23] LABS: BASOPHILS ABSOLUTE AUTO 0.04 K/mm3 (0.00-0.23); BASOPHILS PERCENT AUTO 1 % (0-2); EOSINOPHILS ABSOLUTE AUTO 0.15 K/mm3 (0.00-0.68); EOSINOPHILS PERCENT AUTO 2 % (0-6); Hematocrit 41.6 % (37.0-53.0); Hemoglobin 13.8 g/dL (13.5-17.5); IMMATURE GRAN ABSOLUTE AUTO 0.02 K/mm3 (0.00-0.10); IMMATURE GRAN PERCENT AUTO 0 % (0-1); LYMPHOCYTES ABSOLUTE AUTO 1.01 K/mm3 (0.84-5.20); LYMPHOCYTES PERCENT AUTO 12 % (21-46); MONOCYTES ABSOLUTE AUTO 1.10 K/mm3 (0.16-1.47); MONOCYTES PERCENT AUTO 13 % (4-13); Mean Corpuscular HGB Conc 33.2 g/dL (31.5-36.5); Mean Corpuscular Volume 86 fL (80-100); NEUTROPHILS ABSOLUTE AUTO 5.87 K/mm3 (1.96-9.15); NEUTROPHILS PERCENT AUTO 72 % (41-73); NRBC ABSOLUTE 0.00 K/mm3 (0.00-0.02); NRBC Auto 0.0 /100 WBC (0.0-0.2); Platelet Count 241 K/mm3 (150-400); RDW Coefficient Variation 13.7 % (11.7-14.2); RDW Standard Deviation 42.8 fL (35.1-46.3)
[2025-02-27 21:55] LABS: Alanine Aminotransfer (ALT/SGP 31.0 U/L (12-78); Albumin, Blood 3.9 g/dL (3.4-5.0); Albumin/Globulin Ratio 1.2 (0.8-1.8); Anion Gap 7.0 mmol/L (3-11); Aspartate Aminotrans (AST/SGOT 22.0 U/L (12-37); Bilirubin, Total 0.4 mg/dL (0.1-1.0); Blood Urea Nitrogen 13.0 mg/dL (8-24); CO2, Blood 33.0 mmol/L (21-32); Calcium, Blood 8.7 mg/dL (8.5-10.1); Chloride, Blood 94.0 mmol/L (98-108); Creatinine, Blood 0.97 mg/dL (0.60-1.20); Globulin, Blood 3.2 g/dL (2.2-4.0); Glucose, Blood 101.0 mg/dL (70-99); Potassium, Blood 4.0 mmol/L (3.5-5.5); Sodium, Blood 130.0 mmol/L (136-145); Total Protein, Blood 7.1 g/dL (6.4-8.2)
[2025-02-27 22:42] LABS: CORONAVIRUS COVID-19 AG Negative (NEGATIVE)
[2025-02-28] MEDS ORDERED: Ipratropium/Albuterol SulF 2.5-0.5MG/3 ML Amp INH ONE (00:35)
[2025-02-28 01:00] VITALS: BP 148/95
== END 2025-02-28 01:00 | disposition home or self-care (01) ==
LOC: ER 19:38
PROVIDERS: Student in an Organized Health Care Education/Training Program
DX: I11.0 Hypertensive heart disease with heart failure (principal); I50.30 Unspecified diastolic (congestive) heart failure; J44.9 Chronic obstructive pulmonary disease, unspecified; I48.0 Paroxysmal atrial fibrillation; K21.9 Gastro-esophageal reflux disease without esophagitis; E78.5 Hyperlipidemia, unspecified; Z90.2 Acquired absence of lung [part of]; Z87.891 Personal history of nicotine dependence; Z99.81 Dependence on supplemental oxygen; Z88.8 Allergy status to other drugs, medicaments and biological substances; Z79.899 Other long term (current) drug therapy
CPT/HCPCS: 71046; 80053; 83690; 84484; 85025; 87428-QW; 93005; 93010; 99284-25